=== PATIENT | female | born 1960 | race African-American/Black ===

== ENCOUNTER 2023-11-13 11:11 | Emergency (ER) | payer SELFPAY ==
[2023-11-13] MEDS ORDERED: MORPHINE 4 MG/ML SYR ONE ×2 (11:39→13:22)
[2023-11-13] MEDS ORDERED: ONDANSETRON 4 MG/2 ML VIAL ONE (11:39)
[2023-11-13 11:46] LABS: Absolute Lymphocytes (CBC) 1.1 K/uL (0.7-4.9); Absolute Monocytes 0.1 K/uL (0.1-1.3); Absolute Neutrophil 4.5 K/uL (1.8-8.0); Basophils % 0.6 % (0-1.3); Eosinophils % 0.1 % (0-4.4); Hematocrit 43.2 % (36.0-45.0); Hemoglobin 14.3 g/dL (12.0-15.0); Lymphocytes % 19.3 % (15.3-44.8); MCH 30.7 pg (27.0-35.0); MCHC 33.2 g/dL (32.0-36.0); MCV 92.5 fL (80-100); MPV 8.2 fL (7.6-11.3); Monocytes % 1.7 % (3.3-12.3); Neutrophils % 78.3 % (41.7-73.7); Platelets 283 thou/uL (152-406); RBC Red Blood Cell Count 4.68 M/uL (3.86-4.86); Red Cell Distribution Width 14.4 % (12.1-15.2)
[2023-11-13 12:07] LABS: Albumin 4.1 g/dL (3.4-5.0); Anion Gap 6.8 mEq/L (5.0-15.0); Bilirubin Total 0.4 mg/dL (0.2-1.0); Globulin 4.3 g/dL (2.3-3.5); Potassium 3.8 mEq/L (3.5-5.1); Protein, Total 8.4 g/dL (6.4-8.2); Troponin High Sensitivity 3.3 pg/mL (<58.9)
--- NOTE | 2023-11-13 13:05 | RAD REPORT ---
EXAM DESCRIPTION: US - Abdomen Exam Limited - 11/13/2023 12:11 pm CLINICAL HISTORY: ABD PAIN COMPARISON: No comparisons TECHNIQUE: Sonographic grayscale and color flow images of the right upper abdominal quadrant were o btained. FINDINGS: The gallbladder demonstrates no gallstones. Small fold near the neck. No pericholecystic f luid or gallbladder wall thickening. The common bile duct is normal measuring 3 mm. The liver demonstrates no findings of intrahepatic biliary dilatation. IMPRESSION: Unremarkable examination.
[2023-11-13 13:37] LABS: Specific Gravity 1.028 (1.005-1.030); Sqamous Epithelial None Seen /HPF (None Seen); Urine Bacteria None Seen /HPF (<20); Urine Bilirubin NEGATIVE (Negative); Urine Blood Trace (Negative); Urine Clarity Clear (Clear); Urine Color Light-Yellow (Yellow); Urine Culture Reflex Order NOT NEEDED; Urine Glucose 4+ (Over) (Negative); Urine Ketones NEGATIVE (Negative); Urine Microscopic Reflex YN ORDER UMIC; Urine Nitrite NEGATIVE (Negative); Urine Protein TRACE (Negative); Urine RBC <5 /HPF (None Seen); Urine Urobilinogen Normal (Normal); Urine WBC <5 /HPF (<5); Urine pH 5.5 (5.0-7.0)
--- NOTE | 2023-11-13 14:44 | RAD REPORT ---
EXAM DESCRIPTION: CTAbdomen Pelvis W Contrast - 11/13/2023 2:33 pm CLINICAL HISTORY: Abdominal pain. ABD PAIN COMPARISON: Abdomen Exam Limited dated 11/13/2023 TECHNIQUE: Biphasic CT imaging of the abdomen and pelvis was performed with 100 ml non-ionic IV cont rast. All CT scans are performed using dose optimization technique as appropriate and may include automated exposure control or mA/KV adjustment according to patient size. FINDINGS: The lung bases are clear. The liver demonstrates a mild fatty infiltration pattern. Spleen, pancreas and kidneys are within nor mal limits. Mild thickening of both adrenal glands. No bowel obstruction, free air, free fluid or abscess. Mild sigmoid diverticulosis coli without diver ticulitis. The appendix is normal. No evidence of significant lymphadenopathy. No suspicious bony findings. Hardware is present in the lumbar spine. IMPRESSION: No acute intra-abdominal or pelvic finding. Mild fatty liver.
--- NOTE | 2023-11-13 15:05 | ER ---
Nurse's Notes [facility] Name: Jes Swift Age: 62 yrs Sex: Female : 1960 Arrival Date: 11/13/2023 Time: 11:11 Bed 19 Private MD: Diagnosis: Right upper quadrant pain;Nausea Presentation: 11/12 11:23 Risk Assessment: Do you want to hurt yourself or someone else? Patient reports no mb9 desire to harm self or others. 11:27 Chief complaint: Patient states: RUQ pain , n/v/d this morning. Coronavirus screen: At iw this time, the client does not indicate any symptoms associated with coronavirus-19. Ebola Screen: Patient negative for fever greater than or equal to 101.5 degrees Fahrenheit, and additional compatible Ebola Virus Disease symptoms Patient denies exposure to infectious person. Patient denies travel to an Ebola-affected area in the 21 days before illness onset. No symptoms or risks identified at this time. Initial Sepsis Screen: Does the patient meet any 2 criteria? No. Patient's initial sepsis screen is negative. Does the patient have a suspected source of infection? No. Patient's initial sepsis screen is negative. Onset of symptoms was November 13, 2023. 11:27 Method Of Arrival: Ambulatory iw 11:27 Acuity: GEREMIAS 3 iw Historical: - Allergies: 11:31 Soma; iw - PMHx: 11:26 Hypertensive disorder; Diabetes mellitus; iw - Immunization history:: Adult Immunizations up to date. - Infectious Disease History:: Denies. - Social history:: Smoking status: Patient/guardian denies using tobacco, but has a distant history of tobacco abuse. Screenin:23 [facility] ED Fall Risk Assessment (Adult) History of falling in the last 3 months, mb9 including since admission No falls in past 3 months (0 pts) Confusion or Disorientation No (0 pts) Intoxicated or Sedated No (0 pts) Impaired Gait No (0 pts) Mobility Assist Device Used No (0 pt) Altered Elimination No (0 pt) Score/Fall Risk Level 0 - 2 = Low Risk Oriented to surroundings, Maintained a safe environment, Educated pt \T\ family on fall prevention, incl call for assistance when getting out of bed. Abuse screen: Denies threats or abuse. Nutritional screening: No deficits noted. Tuberculosis screening: No symptoms or risk factors identified. Assessment: 11:56 General: Appears uncomfortable, Behavior is calm, cooperative. Pain: Complains of pain mb9 in abdomen Pain radiates to RUQ Pain currently is 9 out of 10 on a pain scale. Quality of pain is described as throbbing, Pain began suddenly, Is continuous. Neuro: Anders Agitation-Sedation Scale (RASS): 0 - Alert and Calm Level of Consciousness is awake, alert, obeys commands, Oriented to person, place, time, situation, Appropriate for age. Cardiovascular: Heart tones S1 S2 present Patient's skin is warm and dry. Rhythm is regular. Respiratory: Airway is patent Respiratory effort is even, unlabored, Respiratory pattern is regular, symmetrical. GI: Abdomen is round non-distended, Bowel sounds present X 4 quads. Abd is soft Abdomen is tender to palpation in right upper quadrant Reports diarrhea, nausea, vomiting. : No signs and/or symptoms were reported regarding the genitourinary system. EENT: No signs and/or symptoms were reported regarding the EENT system. Derm: Skin is pink, warm \T\ dry. Musculoskeletal: Range of motion: intact in all extremities. 12:55 Reassessment: Patient and/or family updated on plan of care and expected duration. Pain mb9 level reassessed. Patient is alert, oriented x 3, equal unlabored respirations, skin warm/dry/pink. Patient states symptoms have not improved. 13:57 Reassessment: Patient and/or family updated on plan of care and expected duration. Pain mb9 level reassessed. Patient is alert, oriented x 3, equal unlabored respirations, skin warm/dry/pink. Patient states feeling better. Patient states symptoms have improved. 15:10 Reassessment: No changes from previously documented assessment. Patient and/or family mb9 updated on plan of care and expected duration. Pain level reassessed. Patient is alert, oriented x 3, equal unlabored respirations, skin warm/dry/pink. Vital Signs: 11:27 BP 133 / 50; Pulse 61; Resp 16; Temp 97; Pulse Ox 98% on R/A; Weight 82.55 kg; Height 5 iw ft. 4 in. ; Pain 9/10; 12:38 BP 128 / 73; Pulse 58; Resp 16; Pulse Ox 98% on R/A; mb9 13:56 BP 149 / 94; Pulse 60; Resp 16; Pulse Ox 100% on R/A; mb9 15:10 BP 123 / 55; Pulse 62; Resp 18; Pulse Ox 98% ; mb9 11:27 Body Mass Index 31.24 (82.55 kg, 162.56 cm) iw 11:27 Pain Scale: Adult iw ED Course: 11:17 Patient arrived in ED. im 11:18 Meagan Rios MD is Attending Physician. sd2 11:22 Irene Levy, RN is Primary Nurse. mb9 11:22 Arm band placed on. mb9 11:23 Placed in gown. Bed in low position. Call light in reach. Side rails up X 1. Provided mb9 Education on: press call light if needing anything. Client placed on continuous cardiac and pulse oximetry monitoring. NIBP monitoring applied. 11:28 Triage completed. iw 11:57 Initial lab(s) drawn, by me, sent to lab. Inserted saline lock: 22 gauge in left mb9 antecubital area, using aseptic technique. 11:57 Missed attempt(s): 22 gauge in right antecubital area. Bleeding controlled, band aid mb9 applied, catheter tip intact. 11:58 EKG done, by ED staff, reviewed by Meagan Rios MD. mb9 12:13 US Abdomen Limited In Process Unspecified. EDMS 12:39 No provider procedures requiring assistance completed. mb9 13:14 Patient requests pain medication. mb9 13:14 Door closed. Noise minimized. Warm blanket given. Pillow given. mb9 13:15 Urinalysis w/ reflexes Sent. mb9 14:[address] via wheelchair. mb9 14:35 CT Abd/Pelvis - IV Contrast Only In Process Unspecified. EDMS 15:11 IV discontinued, intact, bleeding controlled, No redness/swelling at site. Pressure mb9 dressing applied. Administered Medications: 11:50 Drug: Ondansetron IVP 4 mg IVP once; over 2 minutes Route: IVP; Site: left antecubital; mb9 13:26 Follow up: Response: No adverse reaction mb9 11:56 Drug: morphine IVP or IV 4 mg IVP once over 4 mins Route: IVP; Infused Over: 4 mins; mb9 Site: left antecubital; 13:26 Follow up: Response: No adverse reaction mb9 13:26 Drug: morphine IVP or IV 4 mg IVP once over 4 mins Route: IVP; Infused Over: 4 mins; mb9 Site: left antecubital; 13:58 Follow up: Response: No adverse reaction mb9 Medication: 11:23 VIS not applicable for this client. mb9 Outcome: 15:05 Discharge ordered by . sd2 15:18 Discharged to home ambulatory, mb9 15:18 Condition: stable 15:18 Discharge instructions given to patient, Instructed on discharge instructions, follow up and referral plans. Demonstrated understanding of instructions, follow-up care, medications, Prescriptions given X 2, 15:18 Patient left the ED. mb9 Signatures: Dispatcher [employer] EDMS Vivienne Randhawa RN HEIDE iw Meagan Rios MD MD sd2 Irene Levy RN RN mb9 Shawna Love Corrections: (The following items were deleted from the chart) 11: 11:26 Allergies: No Known Allergies; 11 11:26 PMHx: Hyperthyroidism; 11:31 11:27 BP 133 / 50; Pulse 61bpm; Resp 16bpm; Pulse Ox 98% RA; Temp 97F; iw iw
--- NOTE | 2023-11-13 15:05 | EDPHYS ---
Physician Documentation [facility] Name: Jes Swift Age: 62 yrs Sex: Female : 1960 Arrival Date: 11/13/2023 Time: 11:11 Bed 19 Private MD: ED Physician Meagan Rios HPI: 11/12 11:49 This 62 yrs old Black Female presents to ER via Ambulatory with complaints of sd2 Nausea/Vomiting, Abdominal Pain. 11:49 62-year-old female presents with chief complaint of right upper quadrant abdominal pain sd2 with associated nausea, vomiting and diarrhea that started at 5 AM this morning and woke her up from sleep. She was seen at urgent care prior to coming here and was told to come to the ER due to concern for gallbladder issue. She has not had any previous issues with her gallbladder and has not taken any [id number] medications for pain today. She denies any associated chest pain or shortness of breath or fevers.. Historical: - Allergies: 11:31 Soma; iw - PMHx: 11:26 Hypertensive disorder; Diabetes mellitus; iw - Immunization history:: Adult Immunizations up to date. - Infectious Disease History:: Denies. - Social history:: Smoking status: Patient/guardian denies using tobacco, but has a distant history of tobacco abuse. ROS: 11:49 Constitutional: Negative for fever, chills, and weight loss, Eyes: Negative for injury, sd2 pain, redness, and discharge, Cardiovascular: Negative for chest pain, palpitations, and edema, Respiratory: Negative for shortness of breath, cough, wheezing. 11:49 MS/Extremity: Negative for injury and deformity, Skin: Negative for injury, rash, and discoloration, Neuro: Negative for headache, numbness and tingling. 11:49 Abdomen/GI: Positive for abdominal pain, nausea, vomiting, and diarrhea, Negative for constipation, rectal bleeding, Exam: 11:49 Constitutional: This is a well developed, well nourished patient who is awake, alert, sd2 and in no acute distress. Head/Face: Normocephalic, atraumatic. Eyes: EOMI, normal conjunctiva bilaterally Chest/axilla: Normal chest wall appearance and motion. Nontender with no deformity. Cardiovascular: Regular rate and rhythm with a normal S1 and S2. No gallops, murmurs, or rubs. 2+ distal pulses. Respiratory: Lungs have equal breath sounds bilaterally, clear to auscultation and percussion. No rales, rhonchi or wheezes noted. No increased work of breathing, no retractions or nasal flaring. Abdomen/GI: Soft, ND, RUQ TTP noted with positive Doss's sign, no rebound, voluntary guarding noted to RUQ Skin: Warm, dry with normal turgor. Normal color with no rashes, no lesions, and no evidence of cellulitis. MS/ Extremity: Pulses equal, no cyanosis. Neurovascular intact. Full, normal range of motion. Psych: Awake, alert, with orientation to person, place and time. Behavior, mood, and affect are within normal limits. 12:02 ECG was reviewed by the Attending Physician. Sinus bradycardia, rate 57, no STEMI sd2 criteria or significant ST-T wave changes Vital Signs: 11:27 BP 133 / 50; Pulse 61; Resp 16; Temp 97; Pulse Ox 98% on R/A; Weight 82.55 kg; Height 5 iw ft. 4 in. ; Pain 9/10; 12:38 BP 128 / 73; Pulse 58; Resp 16; Pulse Ox 98% on R/A; mb9 13:56 BP 149 / 94; Pulse 60; Resp 16; Pulse Ox 100% on R/A; mb9 15:10 BP 123 / 55; Pulse 62; Resp 18; Pulse Ox 98% ; mb9 11:27 Body Mass Index 31.24 (82.55 kg, 162.56 cm) iw 11:27 Pain Scale: Adult iw MDM: 11:31 Patient medically screened. sd2 11:49 Differential diagnosis: Gastritis, cholecystitis, pancreatitis, SBO, diverticulitis, sd2 kidney stone, appendicitis, UTI, dehydration, electrolyte abnormality among others. Data reviewed: vital signs, nurses notes, lab test result(s), EKG, radiologic studies, ultrasound. I considered the following discharge prescriptions or medication management in the emergency department Medications were administered in the Emergency Department. See MAR. Care significantly affected by the following chronic conditions: Diabetes, Hypertension. 15:02 Independent interpretation of the following test(s) in the Emergency Department EKG: sd2 See my EKG interpretation above. Counseling: I had a detailed discussion with the patient and/or guardian regarding the historical points, exam findings, and any diagnostic results supporting the discharge/admit diagnosis, lab results, radiology results, the need for outpatient follow up. Response to treatment: the patient's symptoms have markedly improved after treatment. ED course: Pain controlled. Pt resting comfortably. Advised of all results and continued supportive care for home as well as need for outpatient follow up. Verbalizes understanding of discharge plan and strict return precautions. . 11/12 11:32 Order name: CBC with Diff; Complete Time: 14:00 sd2 11/12 11:32 Order name: CMP; Complete Time: 14:00 sd2 11/12 11:32 Order name: Lipase; Complete Time: 14:00 sd2 11/12 11:32 Order name: Troponin High Sensitivity; Complete Time: 14:00 sd11/12 11:32 Order name: Urinalysis w/ reflexes; Complete Time: 14:00 sd2 11/12 11:32 Order name: US Abdomen Limited; Complete Time: 14:00 sd2 11/12 14:01 Order name: CT Abd/Pelvis - IV Contrast Only; Complete Time: 14:57 sd11/12 11:32 Order name: EKG - Nurse/Tech; Complete Time: 11:56 sd2 Administered Medications: 11:50 Drug: Ondansetron IVP 4 mg IVP once; over 2 minutes Route: IVP; Site: left antecubital; mb9 13:26 Follow up: Response: No adverse reaction mb9 11:56 Drug: morphine IVP or IV 4 mg IVP once over 4 mins Route: IVP; Infused Over: 4 mins; mb9 Site: left antecubital; 13:26 Follow up: Response: No adverse reaction mb9 13:26 Drug: morphine IVP or IV 4 mg IVP once over 4 mins Route: IVP; Infused Over: 4 mins; mb9 Site: left antecubital; 13:58 Follow up: Response: No adverse reaction mb9 Disposition Summary: 11/13/23 15:05 Discharge Ordered Notes: Location: Home sd2 Problem: new sd2 Symptoms: have improved sd2 Condition: Stable sd2 Diagnosis - Right upper quadrant pain sd2 - Nausea sd2 Followup: sd2 - With: Private Physician - When: 2 - 3 days - Reason: Recheck today's complaints, Continuance of care, Re-evaluation by your physician Discharge Instructions: - Discharge Summary Sheet sd2 - Abdominal Pain, Adult sd2 - Nausea, Adult sd2 Forms: - Medication Reconciliation Form sd2 - Antibiotic Education sd2 - Prescription Opioid Use sd2 - Patient Portal Instructions sd2 - Leadership Thank You Letter sd2 Prescriptions: - acetaminophen-codeine 300-15 mg Oral tablet - take 1 tablet ORAL route every 6 hours As needed; 12 tablet; Refills: 0, sd2 Product Selection Permitted - Zofran 4 mg Oral tablet - take 1 tablet ORAL route every 6 hours As needed; 15 tablet; Refills: 0, sd2 Product Selection Permitted Signatures: Dispatcher [employer] EDVivienne Cano RN RN Meagan Rios MD MD sd2 Irene Levy RN RN mb9 Corrections: (The following items were deleted from the chart) 11: 11:26 Allergies: No Known Allergies; [facility] 11:26 PMHx: Hyperthyroidism; [facility] 11: 11:32 CBC+H.LAB.BRZ ordered. EDMS EDMS 11:32 11:32 COMPREHENSIVE METABOLIC PANEL+C.LAB.BRZ ordered. EDMS EDMS 11:32 11:32 LIPASE+C.LAB.BRZ ordered. EDMS EDMS 11:32 11:32 Troponin High Sensitivity+C.LAB.BRZ ordered. EDMS EDMS 11:32 11:32 Urinalysis+U.LAB.BRZ ordered. EDMS EDMS
[2023-11-13 15:49] VITALS: BP 123/55; TEMP 97; O2SAT 98
--- NOTE | 2023-11-15 14:42 | EKG ---
Test Date: 2023-11-13 Test Time: 11:51:10 Rn Transitional: MB MEASUREMENT RESULTS: Intervals: Rate: 57 VA: 158 QRSD: 84 QT: 428 QTc: 416 [place]: P: 54 VA: 158 QRS: 23 T: 47 INTERPRETIVE STATEMENTS: Sinus bradycardia Septal infarct, age undetermined Abnormal ECG No previous ECG available for comparison Electronically Signed On 11-15-23 14:38:52 CDT by Jason Christian
== END 2023-11-13 15:18 | disposition home or self-care (01) ==
LOC: ER 11:11
DX: R10.11 Right upper quadrant pain (principal); R11.0 Nausea
CPT/HCPCS: 36415; 74177; 76705; 80053; 81001; 83690; 84484; 85025; 93005; 96374; 96375; 99285; J2405; Q9967

== ENCOUNTER 2024-07-14 10:39 | Emergency (ER) | payer OTHER ==
--- OUTSIDE RECORDS SUMMARY | 2024-07-14 10:45 | XMS REPORT | Continuity of Care Document ---
Author Name Unknown Address [address] [facility] [address] [place] [address] [facility] Address [address] [facility] [address] [place] [address] Care Team Providers Care Billboard Poster Name Role Phone Teressa Su MD Primary Care Physician [phone] TERESSA SU Attending Clinician Unavailable MATHEW KIRKPATRICK Attending Clinician Unav bennieable ROMELIA DUFFY Attending Clinician Unavailable MEAGAN MORALES Attending Clinician UnavailKAE Steel Attending Clinician Unavail louie Blake RN, Char Attending Clinician UnavailEstee Bernal RN Rhoda HOYT Attending Clini bakari Unavailable Chapo ASTUDILLO, Kristy Wesley Attending Clinician [phone] KRISTY COWAN Attending Clinician Rhoda uDran RN Attending Clinician Un available Hubert Rodgers DO Attending Clinician + Roseanna Osullivan MD, Nina Swartz Attending Clinician [phone] Yuliet Richardson APRN Attending Clinician [phone] Nolvia Mendez MD Attending Clinician [phone] Stiven DEL ANGEL, Karen Dowd Attending Clinician [phone] MATHEW KIRKPATRICK Attending Clinician Unav chely Raphael RN, Mirella Attending Clinician Unavailab gunnar AckermanEileen Sarkar LCSW Attending Clinicia n Unavailable Bay DEL ANGEL, Adele Attending Clinician + Merry Gruber LVN Attending Clinician Unavail able DANNY PICKETT Attending Clinician Un available TERESSA SU M.D. Attending Clinician Unavail able MATHEW POTTS N.P. Attending Clinician Unavailable CAMERON, NURSE Attending Clinician Unavailable CO19, DAVEIENNA Attending Clinician Unavail able RADHA DAY APRN Attending Clinician Unavaila ALICIA Limon M.D. Attending Clinician Unavaila MATHEW Zamarripa Admitting Clinician Unav ailable Payers Payer Name Policy Type Policy Number Effective Date Expirati on Date Source OPEN ACCESS [employer] EPO [id number] 2019 00:00:00 MEDICARE PART A AND B [id number] 2023 00:00:00 MEDICARE PART A AND B Medicare [id number] 2024 00:00:00 Problems Condition Name Condition Details Condition Category Status Onset Date Resolution Date Last Treatment Date Treating Clinician Comments Source Cervicalgi a Cervicalgi a Disease Active 2-14 00:00: 00 [facility] Adjustment disorder with depressed mood Adjustment disorder with depressed mood Disease Active 1-12 00:00: 00 [facility] Essential hypertensi on Essential hypertensi on Disease Active 7- 00:00: 00 [facility] Hypothyroi dism Hypothyroi dism Disease Active 9- 00:00: 00 [facility] Diabetes type 2, uncontroll ed Diabetes type 2, uncontroll ed Disease Active 03-24 00:00: 00 [facility] Cervical herniated disc Cervical herniated disc Disease Active 10-21 00:00: 00 [facility] Cervical herniated disc Cervical herniated disc Disease Active 10-21 00:00: 00 [facility] Lumbar radiculopa thy Lumbar radiculopa thy Disease Active 2015-07 00:00: 00 [facility] Peripheral neuropathy Peripheral neuropathy Disease Active 07-27 00:00: 00 [facility] Obesity Obesity Disease Active 07-27 00:00: 00 [facility] Other hyperlipid emia Other hyperlipid emia Disease Active 03-17 00:00: 00 [facility] Graves disease Graves disease Disease Active 11-21 00:00: 00 [facility] Post menopausal problems Post menopausal problems Disease Active 11-21 00:00: 00 [facility] History of allergy History of allergy [facility] History of Back pain History of Back pain Problem Resolve d [facility] History of Diabetes mellitus, type 2 History of Diabetes mellitus, type 2 Problem Resolve d [facility] Encounter for routine gynecologi vern examinatio n with Papanicola ou smear of cervix Encounter for routine gynecologi vern examinatio n with Papanicola ou smear of cervix Problem Active [facility] History of essential hypertensi on History of essential hypertensi on Problem Resolve d [facility] Essential (primary) hypertensi on Essential (primary) hypertensi on Problem Active [facility] History of History of lumbar laminectom y for spinal cord decompress ion History of History of lumbar laminectom y for spinal cord decompress ion Problem Resolve d [facility] History of Hyperthyro idism History of Hyperthyro idism Problem Resolve d [facility] History of obesity History of obesity Problem Resolve d [facility] History of Thyroid disease History of Thyroid disease Problem Resolve d [facility] Bone Pain In The Heel Bone Pain In The Heel Problem Active [facility] Postmenopa usal status Postmenopa usal status Problem Active [facility] Graves disease Graves disease Problem Active [facility] Postmenopa usal bleeding Postmenopa usal bleeding Problem Active [facility] Plantar fasciitis Plantar fasciitis Problem Active [facility] Extremity pain Extremity pain Problem Active [facility] Menopausal disorder Menopausal disorder Problem Active [facility] Visit for screening mammogram Visit for screening mammogram Problem Active [facility] Abnormal thyroid function test Abnormal thyroid function test Problem Active [facility] Pain, wrist joint Pain, wrist joint Problem Active [facility] Other hyperlipid emia Other hyperlipid emia Problem Active [facility] Skin rash Skin rash Problem Active [facility] Elsa infection Elsa infection Problem Active [facility] Vaginal discharge Vaginal discharge Problem Active [facility] Cutaneous candidiasi s Cutaneous candidiasi s Problem Active [facility] Obesity Obesity Problem Active [facility] Vitamin D insufficie ncy Vitamin D insufficie ncy Problem Active [facility] Neuropathy Neuropathy Problem Active [facility] Cervical pain (neck) Cervical pain (neck) Problem Active [facility] S/P cervical spinal fusion S/P cervical spinal fusion Problem Active [facility] Cervical radicular pain Cervical radicular pain Problem Active [facility] Bilateral low back pain with sciatica, sciatica laterality unspecifie d Bilateral low back pain with sciatica, sciatica laterality unspecifie d Problem Active [facility] Normal physical exam, routine Normal physical exam, routine Problem Active [facility] Lumbar radiculopa thy Lumbar radiculopa thy Problem Active [facility] Menopausal symptoms Menopausal symptoms Problem Active [facility] Herniation of interverte bral disc of cervical spine without radiculopa thy Herniation of interverte bral disc of cervical spine without radiculopa thy Problem Active [facility] Need for hepatitis C screening test Need for hepatitis C screening test Problem Active [facility] Carpal tunnel syndrome of right wrist Carpal tunnel syndrome of right wrist Problem Active [facility] Hypothyroi dism Hypothyroi dism Problem Active [facility] Diabetes type 2, uncontroll ed Diabetes type 2, uncontroll ed Problem Active [facility] Lateral epicondyli tis of left elbow Lateral epicondyli tis of left elbow Problem Active [facility] Adjustment disorder with depressed mood Adjustment disorder with depressed mood Problem Active [facility] Depression Depression Problem [facility] Major depressive disorder, recurrent, moderate Major depressive disorder, recurrent, moderate Problem Active [facility] Allergies, Adverse Reactions, Alerts Allergy Name Allergy Type Status Severity Reaction(s) Onset Date Inactive Date Treating Clinician Comments Source Clem allen Allergy to substanc e Active 11-17 00:00: 00 [facility] Carisopr odol Allergy to substanc e Active 11-17 00:00: 00 [facility] Invokana TABS Allergy to drug (finding ) Active [facility] Soma Compound TABS Allergy to drug (finding ) Active [facility] Family History Family Member Diagnosis Comments Start Date Stop Date Sourc e Mother Family history of di abetes mellitus [facility] Mother Family history of ty pe 2 diabetes mellitus [facility] Father Family history of ty pe 2 diabetes mellitus [facility] Social History Social Habit Start Date Stop Date Quantity Comments Source Gender identity 2023-10-05 05:37:52 Identifies as female gender (finding) [facility] History of tobacco use Current smoker [facility] Sexual orientation [facility] ASSERTION Not [facility] Alcoholic beverage intake 2024-07-13 00:00:00 2024-07-13 00:00:00 Current drinker of alcohol (finding) [facility] History of Social function 2024-05-19 00:00:00 2024-05-19 00:00:00 [facility] Alcohol intake 2023-05-17 00:00:00 2023-05-17 00:00:00 Current drinker of alcohol (finding) [facility] Exposure to SARS-CoV-2 (event) 2022-08-21 00:00:00 2022-08-31 08:44:00 Not sure [facility] History SDOH Food Worry 2022-08-10 00:00:00 2022-08-10 00:00:00 1 [facility] History SDOH Food Scarcity 2022-08-10 00:00:00 2022-08-10 00:00:00 1 [facility] Tobacco Comment 2022-08-10 00:00:00 2022-08-10 00:00:00 Smoking History Packs/day: N. Recorded:04/25/20 21 [facility] Tobacco use and exposure 2022-08-10 00:00:00 2022-08-10 00:00:00 Smokeless tobacco non-user [facility] History SDOH Alcohol Frequency 2022-08-10 00:00:00 2022-08-10 00:00:00 4 [facility] History SDOH Alcohol Std Drinks 2022-08-10 00:00:00 2022-08-10 00:00:00 1 [facility] History SDOH Alcohol Binge 2022-08-10 00:00:00 2022-08-10 00:00:00 1 [facility] Cigarette pack-years 2021-03-24 00:00:00 2021-03-24 00:00:00 [facility] Alcohol Comment 2021-03-24 00:00:00 2021-03-24 00:00:00 social [facility] Sex 2020-09-07 16:24:01 2020-09-07 16:24:01 Female (finding) [facility] Sex assigned at 1960 00:00:00 1960 00:00:00 F [facility] Smoking Status Start Date Stop Date Source Ex-smoker [facility] Tobacco smoking consumption unknown [facility] Never smoked tobacco [facility] Medications Ordered Medication Name Filled Medication Name Start Date Stop Date Current Medication? Ordering Clinician Indication Dosage Frequency Signature (SIG) Comments Components Source Blood Pressure Monitoring (Blood Pressure Cuff) [facility] 2023-07 00:00: 00 Yes [id number] 1U QD 1 Units 1 (one) time each day. [facility] rosuvastati n (Crestor) 10 MG tablet 2023-07 00:00: 00 Yes [id number] 10mg QD TAKE 1 TABLET BY MOUTH 1 TIME EACH DAY. [facility] lisinopril- hydroCHLORO thiazide 20-25 MG tablet 2023-07 00:00: 00 Yes [id number] 1{tbl} QD TAKE 1 TABLET BY MOUTH 1 TIME EACH DAY. [facility] Trulicity 1.5 MG/0.5ML solution auto-inject or 2023-07 00:00: 00 Yes [facility] cephalexin (Keflex) 500 MG capsule cephalexin (Keflex) 500 MG capsule 2023-07 00:00: 00 06-25 23:59 :00 No 500mg Q.5D Take 1 capsule by mouth in the morning and 1 capsule in the evening. Do all this for 7 days. Tanika Wheeler cephalexin (Keflex) 500 MG capsule cephalexin (Keflex) 500 MG capsule 2023-07 00:00: 00 06-18 00:00 :00 No 500mg Q.5D Take 1 capsule by mouth in the morning and 1 capsule in the evening. Do all this for 10 days. [facility] montelukast (Singulair) 10 MG tablet 2023-07 00:00: 00 Yes [id number] 10mg QD Take 1 tablet (10 mg total) by mouth 1 (one) time each day. [facility] hydrOXYzine HCl (Atarax) 25 MG tablet 2023-07 00:00: 00 Yes [id number] 25mg Take 1 tablet (25 mg total) by mouth every night. [facility] cyclobenzap rine (Flexeril) 10 MG tablet 2023-07 00:00: 00 Yes [id number] TAKE 1 TABLET BY MOUTH THREE TIMES A DAY NEEDED FOR MUSCLE SPASM [facility] insulin aspart (NovoLOG FLEXPEN) 100 UNIT/ML injection 2023-07 00:00: 00 Yes [id number] 9109 22U Q.[id number] 3D Inject 22 Units under the skin in the morning and 22 Units at noon and 22 Units in the evening. MAXIMUM OF 60 UNITS PER DAY. [facility] levothyroxi ne (Synthroid, Levoxyl) 75 MCG tablet 2023-07 00:00: 00 05-30 05:59 :00 Yes [id number] 75ug QD Take 1 tablet (75 mcg total) by mouth 1 (one) time each day. [facility] Dulaglutide 0.75 MG/0.5ML solution auto-inject or 2023-07 00:00: 00 Yes [id number] 9109 .75mg Inject 0.75 mg under the skin 1 (one) time per week. Inject 0.75 mg under the skin 1 (one) time per week. [facility] gabapentin (Neurontin) 800 MG tablet 2023-07 00:00: 00 05-27 05:59 :00 Yes [id number] 800mg Q.[id number] 3D Take 1 tablet (800 mg total) by mouth in the morning and 1 tablet (800 mg total) at noon and 1 tablet (800 mg total) in the evening. [facility] lisinopril- hydroCHLORO thiazide 20-25 MG tablet 2023-07 00:00: 00 2025- 07-11 04:59 :00 Yes [id number] 1{tbl} QD Take 1 tablet by mouth 1 (one) time each day. [facility] rosuvastati n (Crestor) 10 MG tablet 2023-07 00:00: 00 11-23 04:59 :00 Yes [id number] 9109 10mg QD Take 1 tablet (10 mg total) by mouth 1 (one) time each day. [facility] dulaglutide (Trulicity) 0.75 MG/0.5ML solution pen-injecto r 04-13 00:00: 00 Yes [id number] 9109 .75mg Inject 0.75 mg under the skin 1 (one) time per week. [facility] hydrOXYzine HCl (Atarax) 25 MG tablet 04-08 00:00: 00 Yes [id number] 25mg Take 1 tablet (25 mg total) by mouth every night. [facility] cyclobenzap rine (Flexeril) 10 MG tablet 03-23 00:00: 00 Yes [id number] TAKE 1 TABLET BY MOUTH THREE TIMES A DAY NEEDED FOR MUSCLE SPASM [facility] montelukast (Singulair) 10 MG tablet 03-02 00:00: 00 Yes [id number] 10mg QD Take 1 tablet (10 mg total) by mouth 1 (one) time each day. [facility] insulin degludec (Tresiba FlexTouch) 100 UNIT/ML injection 03-02 00:00: 00 Yes [id number] 9109 35U Inject 35 Units under the skin every morning. [facility] insulin aspart (NovoLOG FLEXPEN) 100 UNIT/ML injection 03-02 00:00: 00 Yes [id number] 9109 22U Q.[id number] 3D Inject 22 Units under the skin in the morning and 22 Units at noon and 22 Units in the evening. MAXIMUM OF 60 UNITS PER DAY. [facility] Blood Glucose Monitoring Suppl (Accu-Chek Jennifer Plus) w/Device kit 03-02 00:00: 00 Yes [id number] 9109 1U Inject 1 Units under the skin See administra tion instructio ns. [facility] levothyroxi ne (Synthroid, Levoxyl) 75 MCG tablet 03-02 00:00: 00 03-03 04:59 :00 No [id number] 75ug QD Take 1 tablet (75 mcg total) by mouth 1 (one) time each day. [facility] gabapentin (Neurontin) 800 MG tablet 03-02 00:00: 00 03-03 04:59 :00 No [id number] 800mg Q.[id number] 3D Take 1 tablet (800 mg total) by mouth in the morning and 1 tablet (800 mg total) at noon and 1 tablet (800 mg total) in the evening. [facility] lisinopril- hydroCHLORO thiazide 20-25 MG tablet 03-02 00:00: 00 10-29 04:59 :00 No [id number] 1{tbl} QD Take 1 tablet by mouth 1 (one) time each day. [facility] rosuvastati n (Crestor) 10 MG tablet 03-02 00:00: 00 08-30 05:59 :00 No [id number] 9109 10mg QD Take 1 tablet (10 mg total) by mouth 1 (one) time each day. [facility] empaglifloz in (Jardiance) 10 MG 03-02 00:00: 00 04-13 00:00 :00 No [id number] 9109 10mg QD Take 1 tablet (10 mg total) by mouth 1 (one) time each day. [facility] Insulin Pen Needle (BD Pen Needle Theresa 2nd Gen) 32G X 4 MM misc 03-02 00:00: 00 03-02 00:00 :00 No [id number] 9109 1U INJECT 1 UNITS UNDER THE SKIN 3 (THREE) TIMES A WEEK. [facility] cyclobenzap rine (Flexeril) 10 MG tablet 02-24 00:00: 00 Yes [id number] TAKE 1 TABLET BY MOUTH THREE TIMES A DAY NEEDED FOR MUSCLE SPASM [facility] celecoxib (CeleBREX) 200 MG capsule - 00:00: 00 Yes [id number] TAKE 1 CAPSULE BY MOUTH EVERY DAY [facility] rosuvastati n (Crestor) 10 MG tablet 08-26 00:00: 00 03-02 00:00 :00 No [id number] 10mg QD Take 1 tablet (10 mg total) by mouth 1 (one) time each day. [facility] levothyroxi ne (Synthroid, Levoxyl) 75 MCG tablet 08-26 00:00: 00 03-02 00:00 :00 No [id number] 75ug QD Take 1 tablet (75 mcg total) by mouth 1 (one) time each day. [facility] cetirizine (ZyrTEC) 10 MG tablet 08-23 09:09: 40 Yes TAKE 1 TABLET TWICE DAILY [facility] glucose blood test strip 08-23 09:09: 40 Yes Accu-Chek Jennifer Plus test strips USE 1 STRIP 4 TIMES A DAY [facility] insulin detemir (Levemir) 100 UNIT/ML injection 08-23 09:09: 40 Yes 35U Inject 35 Units under the skin 1 (one) time each day in the morning. [facility] simvastatin (Zocor) 20 MG tablet 08-23 00:00: 00 Yes [id number] 9109 20mg QD Take 1 tablet (20 mg total) by mouth 1 (one) time each day. [facility] levothyroxi ne (Synthroid, Levoxyl) 50 MCG tablet 08-23 00:00: 00 Yes [id number] 50ug Take 1 tablet (50 mcg total) by mouth 1 (one) time each day before breakfast. TAKE 1 TABLET BY MOUTH EVERY MORNING BEFORE EATING [facility] Omeprazole 20 MG tablet delayed-rel ease 08-23 00:00: 00 Yes [facility] montelukast (Singulair) 10 MG tablet 08-23 00:00: 00 03-02 00:00 :00 No [id number] 10mg QD Take 1 tablet (10 mg total) by mouth 1 (one) time each day. [facility] lisinopril- hydroCHLORO thiazide 20-25 MG tablet 08-23 00:00: 00 03-02 00:00 :00 No [id number] 1{tbl} QD Take 1 tablet by mouth 1 (one) time each day. [facility] insulin degludec (Tresiba FlexTouch) 100 UNIT/ML injection 2024-0 2-09 00:00: 00 03-02 00:00 :00 No [id number] 35U Inject 35 Units under the skin every morning. [facility] dulaglutide (Trulicity) 1.5 MG/0.5ML solution pen-injecto r 2- 00:00: 00 03-02 00:00 :00 No [id number] 9109 1.5mg Inject 1.5 mg under the skin 1 (one) time per week. INJECT 1.5 MG UNDER THE SKIN 1 (ONE) TIME PER WEEK [facility] dapaglifloz in (Farxiga) 5 MG - 00:00: 00 03-02 00:00 :00 No [id number] 5mg QD Take 1 tablet (5 mg total) by mouth 1 (one) time each day. [facility] cyclobenzap rine (Flexeril) 10 MG tablet 2- 00:00: 00 Yes [id number] TAKE 1 TABLET BY MOUTH THREE TIMES A DAY NEEDED FOR MUSCLE SPASM [facility] gabapentin (Neurontin) 800 MG tablet 2- 00:00: 00 03-02 00:00 :00 No [id number] 800mg Q.[id number] 3D TAKE 1 TABLET (800 MG TOTAL) BY MOUTH IN THE MORNING AND 1 TABLET (800 MG TOTAL) AT NOON AND 1 TABLET (800 MG TOTAL) IN THE EVENING. [facility] celecoxib (CeleBREX) 200 MG capsule 1-29 00:00: 00 Yes [id number] TAKE 1 CAPSULE BY MOUTH EVERY DAY [facility] insulin degludec (Tresiba FlexTouch) 100 UNIT/ML injection 1-24 00:00: 00 08-23 00:00 :00 No [id number] 35U Inject 35 Units under the skin every morning. [facility] insulin aspart (NovoLOG FLEXPEN) 100 UNIT/ML injection 1-16 00:00: 00 03-02 00:00 :00 No [id number] 9109 22U Q.[id number] 3D INJECT 22 UNITS UNDER THE SKIN 3 (THREE) TIMES A DAY. MAXIMUM OF 60 UNITS PER DAY [facility] Insulin Pen Needle (BD Pen Needle Theresa 2nd Gen) 32G X 4 MM misc 07-30 00:00: 00 03-02 00:00 :00 No [id number] 9109 USE UP TO 5 TIMES DAILY [facility] montelukast (Singulair) 10 MG tablet 07-30 00:00: 00 08-23 00:00 :00 No [id number] TAKE 1 TABLET BY MOUTH EVERY DAY [facility] dulaglutide (Trulicity) 1.5 MG/0.5ML solution pen-injecto r 07-30 00:00: 00 08-23 00:00 :00 No [id number] 9109 1.5mg INJECT 1.5 MG UNDER THE SKIN 1 (ONE) TIME PER WEEK. [facility] simvastatin (Zocor) 20 MG tablet 2022-07 00:00: 00 08-23 00:00 :00 No [id number] 9109 TAKE 1 TABLET BY MOUTH EVERY DAY [facility] hydrOXYzine HCl (Atarax) 25 MG tablet 2022-07 00:00: 00 03-02 00:00 :00 No [id number] TAKE 1 TABLET (25 MG TOTAL) BY MOUTH IN THE MORNING AND BEFORE BEDTIME [facility] albuterol 108 (90 Base) MCG/ACT inhaler 2022-07 06:27: 02 05-18 00:00 :00 No albuterol sulfate HFA 90 mcg/actuat ion aerosol inhaler [facility] cetirizine (ZyrTEC) 10 MG tablet 2022-07 15:53: 43 Yes TAKE 1 TABLET TWICE DAILY [facility] cyclobenzap rine (Flexeril) 10 MG tablet 2022-07 00:00: 00 Yes [id number] TAKE 1 TABLET BY MOUTH THREE TIMES A DAY NEEDED FOR MUSCLE SPASM [facility] famotidine (Pepcid) 20 MG tablet 2022-07 00:00: 00 08-23 00:00 :00 No [id number] 20mg Q.5D Take 1 tablet (20 mg total) by mouth in the morning and 1 tablet (20 mg total) in the evening. [facility] lisinopril- hydroCHLORO thiazide 20-12.5 MG tablet 2022-07- 00:00: 00 08-23 00:00 :00 No [id number] 1{tbl} QD Take 1 tablet by mouth 1 (one) time each day. [facility] celecoxib (CeleBREX) 200 MG capsule 2022-07 0- 00:00: 00 Yes [id number] TAKE 1 CAPSULE BY MOUTH EVERY DAY [facility] insulin aspart (NovoLOG FLEXPEN) 100 UNIT/ML injection 2022-07 0- 00:00: 00 Yes [id number] 9109 22U Q.[id number] 3D INJECT 22 UNITS UNDER THE SKIN IN THE MORNING AND 22 UNITS AT NOON AND 22 UNITS IN THE EVENING. MAXIMUM OF 60 UNITS PER DAY. [facility] levothyroxi ne (Synthroid, Levoxyl) 50 MCG tablet 2022-07 00:00: 00 08-23 00:00 :00 No [id number] TAKE 1 TABLET BY MOUTH EVERY MORNING BEFORE EATING. [facility] hydrOXYzine HCl (Atarax) 25 MG tablet 2022-07 0-05 00:00: 00 Yes [id number] TAKE 1 TABLET (25 MG TOTAL) BY MOUTH IN THE MORNING AND BEFORE BEDTIME [facility] simvastatin (Zocor) 20 MG tablet 9-19 00:00: 00 Yes [id number] 9109 TAKE 1 TABLET BY MOUTH EVERY DAY [facility] montelukast (Singulair) 10 MG tablet 9-14 00:00: 00 Yes [id number] TAKE 1 TABLET BY MOUTH EVERY DAY [facility] dulaglutide (Trulicity) 1.5 MG/0.5ML solution pen-injecto r 9-13 00:00: 00 Yes [id number] 9109 INJECT 0.5 ML (ONE PEN) WEEKLY UNDER THE SKIN [facility] cyclobenzap rine (Flexeril) 10 MG tablet 7-28 00:00: 00 05-17 00:00 :00 No [id number] TAKE 1 TABLET BY MOUTH THREE TIMES A DAY NEEDED FOR MUSCLE SPASM [facility] DULoxetine (Cymbalta) [address] capsule 5-26 00:00: 00 05-18 00:00 :00 No [id number] TAKE 1 CAPSULE BY MOUTH EVERY DAY [facility] insulin detemir (Levemir FlexTouch) 100 UNIT/ML injection 11-08 00:00: 00 Yes [id number] 35U Inject 35 Units under the skin 1 (one) time each day in the morning. [facility] enalapril-h ydroCHLOROt hiazide (Vasoretic) 10-25 MG tablet - 00:00: 00 05-18 00:00 :00 No [id number] 1{tbl} QD TAKE 1 TABLET BY MOUTH 1 (ONE) TIME EACH DAY. NEEDS OFFICE VISIT FOR ADDITIONAL REFILLS. [facility] enalapril-h ydroCHLOROt hiazide (Vasoretic) 10-25 MG tablet 09-05 00:00: 00 Yes [id number] 1{tbl} QD TAKE 1 TABLET BY MOUTH 1 (ONE) TIME EACH DAY. NEEDS OFFICE VISIT FOR ADDITIONAL REFILLS. [facility] levothyroxi ne (Synthroid, Levoxyl) 50 MCG tablet 09-05 00:00: 00 Yes [id number] TAKE 1 TABLET BY MOUTH EVERY MORNING BEFORE EATING. [facility] cyclobenzap rine (Flexeril) 10 MG tablet 09-03 00:00: 00 Yes [id number] TAKE 1 TABLET BY MOUTH THREE TIMES A DAY NEEDED FOR MUSCLE SPASM [facility] Accu-Chek Softclix Lancets lancets 08-22 00:00: 00 08-23 05:59 :00 No [id number] Before each meal and at bedtime [facility] glucose blood (Accu-Chek Jennifer Plus) test strip 08-22 00:00: 00 08-23 05:59 :00 No [id number] Before each meal and at bedtime. [facility] celecoxib (CeleBREX) 200 MG capsule 08-10 00:00: 00 Yes [id number] 200mg QD Take 1 capsule (200 mg total) by mouth 1 (one) time each day. [facility] insulin detemir (Levemir FlexTouch) 100 UNIT/ML injection 08-10 00:00: 00 Yes [id number] 35U Inject 35 Units under the skin 1 (one) time each day in the morning. [facility] gabapentin (Neurontin) 800 MG tablet 08-10 00:00: 00 08-11 05:59 :00 No [id number] 800mg Q.[id number] 3D Take 1 tablet (800 mg total) by mouth in the morning and 1 tablet (800 mg total) at noon and 1 tablet (800 mg total) in the evening. [facility] cyclobenzap rine (Flexeril) 10 MG tablet 08-07 00:00: 00 Yes [id number] TAKE 1 TABLET BY MOUTH THREE TIMES A DAY NEEDED FOR MUSCLE SPASM [facility] dulaglutide (Trulicity) 1.5 MG/0.5ML solution pen-injecto r 07-25 00:00: 00 Yes [id number] 9109 INJECT 0.5 ML (ONE PEN) WEEKLY UNDER THE SKIN [facility] montelukast (Singulair) 10 MG tablet 07-25 00:00: 00 Yes [id number] TAKE 1 TABLET BY MOUTH EVERY DAY [facility] hydrOXYzine HCl (Atarax) 25 MG tablet 2021-07 00:00: 00 Yes [id number] 25mg Q.5D Take 1 tablet (25 mg total) by mouth in the morning and 1 tablet (25 mg total) before bedtime. [facility] insulin detemir (Levemir FlexTouch) 100 UNIT/ML injection 2021-07 00:00: 00 08-10 00:00 :00 No [id number] INJECT 20 UNITS SUBCUTANEO USLY DAILY [facility] enalapril-h ydroCHLOROt hiazide (Vasoretic) 10-25 MG tablet 2021-07 00:00: 00 Yes [id number] 1{tbl} QD TAKE 1 TABLET BY MOUTH 1 (ONE) TIME EACH DAY. NEEDS OFFICE VISIT FOR ADDITIONAL REFILLS. [facility] levothyroxi ne (Synthroid, Levoxyl) 50 MCG tablet 2021-07 00:00: 00 Yes [id number] TAKE 1 TABLET BY MOUTH EVERY MORNING BEFORE EATING. [facility] simvastatin (Zocor) 20 MG tablet 2021-07 00:00: 00 Yes [id number] TAKE 1 TABLET (20 MG TOTAL) BY MOUTH ONCE DAILY [facility] Insulin Pen Needle (BD Pen Needle Theresa U/F) 32G X 4 MM misc 2021-07 00:00: 00 Yes [id number] 9109 USE UP TO 5 TIMES DAILY [facility] insulin aspart (NovoLOG FLEXPEN) 100 UNIT/ML injection 2021-07 00:00: 00 Yes [id number] 9109 22U Q.[id number] 3D INJECT 22 UNITS UNDER THE SKIN 3 (THREE) TIMES A DAY. MAXIMUM OF 60 UNITS PER DAY [facility] pregabalin (Lyrica) 100 MG capsule 2021-07 00:00: 00 08-10 00:00 :00 No [id number] TAKE 1 CAPSULE BY MOUTH THREE TIMES A DAY [facility] cetirizine (ZyrTEC) 10 MG tablet 03-09 09:00: 22 Yes TAKE 1 TABLET TWICE DAILY [facility] albuterol 108 (90 Base) MCG/ACT inhaler 03-09 09:00: 22 Yes albuterol sulfate HFA 90 mcg/actuat ion aerosol inhaler [facility] glucose blood test strip 03-09 09:00: 22 Yes Accu-Chek Jennifer Plus test strips USE 1 STRIP 4 TIMES A DAY [facility] insulin detemir (Levemir) 100 UNIT/ML injection 03-09 09:00: 22 Yes 35U Inject 35 Units under the skin 1 (one) time each day in the morning. [facility] glucose blood test strip 03-09 09:00: 22 Yes Accu-Chek Jennifer Plus test strips USE 1 STRIP 4 TIMES A DAY [facility] DULoxetine (Cymbalta) [address] capsule 03-09 00:00: 00 03-09 00:00 :00 No [id number] TAKE 1 CAPSULE BY MOUTH EVERY DAY [facility] Trulicity 1.5 MG/0.5ML solution pen-injecto r 03-07 00:00: 00 Yes [id number] 9109 INJECT 0.5 ML (ONE PEN) WEEKLY UNDER THE SKIN [facility] cyclobenzap rine (Flexeril) 10 MG tablet 03-05 00:00: 00 Yes [id number] TAKE 1 TABLET BY MOUTH 3 TIMES A DAY IF NEEDED FOR MUSCLE SPASMS. [facility] pregabalin (Lyrica) 100 MG capsule 02-08 00:00: 00 Yes [id number] TAKE 1 CAPSULE BY MOUTH THREE TIMES A DAY [facility] simvastatin (Zocor) 20 MG tablet 01-29 00:00: 00 Yes [id number] 9109 TAKE 1 TABLET (20 MG TOTAL) BY MOUTH ONE TIME EACH DAY [facility] montelukast (Singulair) 10 MG tablet 01-29 00:00: 00 Yes [id number] TAKE 1 TABLET BY MOUTH EVERY DAY [facility] enalapril-h ydroCHLOROt hiazide (Vasoretic) 10-25 MG tablet 01-29 00:00: 00 Yes [id number] 1{tbl} QD TAKE 1 TABLET BY MOUTH 1 (ONE) TIME EACH DAY. NEEDS OFFICE VISIT FOR ADDITIONAL REFILLS. [facility] NovoLOG FLEXPEN 100 UNIT/ML injection 01-29 00:00: 00 Yes [id number] 9109 22U Q.[id number] 3D INJECT 22 UNITS UNDER THE SKIN 3 (THREE) TIMES A DAY. MAXIMUM OF 60 UNITS PER DAY [facility] levothyroxi ne (Synthroid, Levoxyl) 50 MCG tablet 01-29 00:00: 00 Yes [id number] TAKE 1 TABLET BY MOUTH EVERY MORNING BEFORE EATING. [facility] hydrOXYzine HCl (Atarax) 25 MG tablet 01-18 00:00: 00 Yes [id number] TAKE 1 TABLET BY MOUTH TWICE A DAY [facility] celecoxib (CeleBREX) 200 MG capsule 01-02 00:00: 00 Yes [id number] TAKE 1 CAPSULE BY MOUTH TWICE A DAY [facility] Trulicity 1.5 MG/0.5ML solution pen-injecto r 12-04 00:00: 00 Yes [id number] 9109 INJECT 0.5 ML (ONE PEN) WEEKLY UNDER THE SKIN [facility] pregabalin (Lyrica) 100 MG capsule 12-04 00:00: 00 Yes [id number] 100mg Q.[id number] 3D Take 1 capsule (100 mg total) by mouth 3 (three) times a day. [facility] methylPREDN ISolone (Medrol Dospak) 4 MG tablets 12-04 00:00: 00 03-09 00:00 :00 No [id number] Follow schedule on package instructio ns [facility] insulin detemir (Levemir) 100 UNIT/ML injection 12-01 10:30: 19 03-02 00:00 :00 No 35U Inject 35 Units under the skin 1 (one) time each day in the morning. [facility] cetirizine (ZyrTEC) 10 MG tablet 12-01 10:24: 07 Yes TAKE 1 TABLET TWICE DAILY [facility] albuterol 108 (90 Base) MCG/ACT inhaler 12-01 10:24: 07 Yes albuterol sulfate HFA 90 mcg/actuat ion aerosol inhaler [facility] glucose blood test strip 12-01 10:24: 07 Yes Accu-Chek Jennifer Plus test strips USE 1 STRIP 4 TIMES A DAY [facility] montelukast (Singulair) 10 MG tablet 11-27 00:00: 00 Yes [id number] TAKE 1 TABLET BY MOUTH EVERY DAY [facility] cyclobenzap rine (Flexeril) 10 MG tablet 11-20 00:00: 00 Yes [id number] TAKE 1 TABLET BY MOUTH 3 TIMES A DAY IF NEEDED FOR MUSCLE SPASMS. [facility] levothyroxi ne (Synthroid, Levoxyl) 50 MCG tablet 11-16 00:00: 00 Yes [id number] TAKE 1 TABLET BY MOUTH EVERY MORNING BEFORE EATING. [facility] simvastatin (Zocor) 20 MG tablet 11-14 00:00: 00 Yes [id number] TAKE 1 TABLET (20 MG TOTAL) BY MOUTH ONE TIME EACH DAY [facility] enalapril-h ydroCHLOROt hiazide (Vasoretic) 10-25 MG tablet 11-14 00:00: 00 Yes [id number] 1{tbl} QD TAKE 1 TABLET BY MOUTH 1 (ONE) TIME EACH DAY. NEEDS OFFICE VISIT FOR ADDITIONAL REFILLS. [facility] DULoxetine (Cymbalta) [address] capsule 11-14 00:00: 00 03-09 00:00 :00 No [id number] TAKE 1 CAPSULE BY MOUTH EVERY DAY [facility] hydrOXYzine HCl (Atarax) 25 MG tablet 2022-0 3-31 00:00: 00 Yes [id number] TAKE 1 TABLET BY MOUTH TWICE A DAY [facility] NovoLOG FLEXPEN 100 UNIT/ML injection 3-25 00:00: 00 Yes [id number] 9109 22U Q.[id number] 3D INJECT 22 UNITS UNDER THE SKIN 3 (THREE) TIMES A DAY. MAXIMUM OF 60 UNITS PER DAY [facility] celecoxib (CeleBREX) 200 MG capsule 2-25 00:00: 00 Yes [id number] TAKE 1 CAPSULE BY MOUTH TWICE A DAY FOR 90 DAYS [facility] fluticasone -salmeterol (Advair Diskus) 250-50 MCG/DOSE diskus inhaler 2020-07 1-16 00:00: 00 05-18 00:00 :00 No [id number] TAKE 2 PUFFS BY MOUTH ONCE EVERY DAY [facility] cetirizine (ZyrTEC) 10 MG tablet 03-24 14:39: 36 Yes TAKE 1 TABLET TWICE DAILY [facility] albuterol 108 (90 Base) MCG/ACT inhaler 03-24 14:39: 36 Yes albuterol sulfate HFA 90 mcg/actuat ion aerosol inhaler [facility] traMADol ER (Ultram-ER) 100 MG 24 hr tablet 03-24 14:39: 36 Yes tramadol ER 100 mg tablet,ext ended release 24 hr [facility] insulin aspart (NovoLOG FLEXPEN) 100 UNIT/ML injection 8-13 00:00: 00 Yes [id number] 9109 20U Q.[id number] 3D Inject 20 Units under the skin 3 (three) times a day. MAXIMUM OF 60 UNITS PER DAY [facility] simvastatin (Zocor) 20 MG tablet 8- 00:00: 00 Yes [id number] 9109 TAKE 1 TABLET BY MOUTH EVERY DAY [facility] montelukast (Singulair) 10 MG tablet 7-06 00:00: 00 Yes [id number] TAKE 1 TABLET BY MOUTH EVERY DAY [facility] nortriptyli ne (Pamelor) 10 MG capsule 5-27 00:00: 00 Yes [id number] TAKE 2 CAPSULES BY MOUTH EVERY DAY AT BEDTIME [facility] fluticasone -salmeterol (Advair Diskus) 250-50 MCG/DOSE diskus inhaler 5-19 00:00: 00 Yes [id number] 2 puffs once A day [facility] traMADol (Ultram) 50 MG tablet 11-08 00:00: 00 Yes [facility] DULoxetine (Cymbalta) [address] capsule - 00:00: 00 Yes TAKE 1 CAPSULE ONCE DAILY FOR 1 WEEK, THEN TAKE 2 CAPSULES DAILY FOR DEPRESSION AND ANXIETY.DO NOT TAKE WITH ASPIRIN, IBUPROFEN, NAPROXEN, ALEVE, OR MOTRIN. [facility] acetaminoph en-codeine (Tylenol w/ Codeine #3) 300-30 MG tablet 3-22 00:00: 00 Yes TAKE 1 TO 2 TABLETS BY MOUTH EVERY 4 TO 6 HOURS NEEDED FOR PAIN [facility] nortriptyli ne (Pamelor) 25 MG capsule 3-08 00:00: 00 Yes PLEASE SEE ATTACHED FOR DETAILED DIRECTIONS [facility] methylPREDN ISolone (Medrol Dospak) 4 MG tablets 3-05 00:00: 00 Yes TAKE 1 DOSE PK(S) BY ORAL ROUTE DIRECTED. [facility] Accu-Chek Jennifer Plus test strip 2- 00:00: 00 Yes USE 1 STRIP 4 TIMES A DAY [facility] BD Pen Needle Theresa U/F 32G X 4 MM misc 2019-07 0-12 00:00: 00 Yes USE UP TO 5 TIMES DAILY [facility] Montelukast Sodium 10 MG Oral Tablet Montelukast Sodium 10 MG Oral Tablet 2019-07 0 00:00: 00 Yes TERESSA SU M.D. TAKE 1 TABLET BY MOUTH EVERY DAY [facility] FreeStyle Wilder 14 Day [place] Device FreeStyle Wilder 14 Day [place] Device 03-25 00:00: 00 Yes TERESSA SU M.D. USE DIRECTED [facility] FreeStyle Wilder 14 Day Sensor FreeStyle Wilder 14 Day Sensor 03-25 00:00: 00 Yes TERESSA SU M.D. Check blood glucose twice daily - 1 sensor is good for 14 days. [facility] [employer] [facility] Continuous Blood Gluc [employer] Product Analyst (FreeStyle Wilder 14 Day [place]) device 03-25 00:00: 00 03-02 00:00 :00 No USE DIRECTED [facility] insulin detemir (Levemir FlexTouch) 100 UNIT/ML injection 03-24 00:00: 00 Yes INJECT 20 UNIT DAILY [facility] Accu-Chek Jennifer Plus w/Device Kit Accu-Chek Jennifer Plus w/Device Kit 10-09 00:00: 00 Yes TERESSA GEORGES M.D. USE DIRECTED. [facility] Accu-Chek Jennifer Plus In Vitro Strip Accu-Chek Jennifer Plus In Vitro Strip 10-09 00:00: 00 Yes TERESSA GEORGES M.D. USE 1 STRIP 4 TIMES A DAY [facility] Blood Glucose Monitoring Suppl (Accu-Chek Jennifer Plus) w/Device kit 10-09 00:00: 00 03-02 00:00 :00 No USE DIRECTED. [facility] cyclobenzap rine (Flexeril) 10 MG tablet 10-21 00:00: 00 Yes cyclobenza yoshi 10 mg tablet [facility] NovoLOG FlexPen 100 UNIT/ML Subcutaneou s Solution Pen-injecto r NovoLOG FlexPen 100 UNIT/ML Subcutaneou s Solution Pen-injecto r 10-08 00:00: 00 Yes TERESSA SU M.D. 20 Q0.3333D INJECT 20 UNIT 3 TIMES DAILY [facility] glimepiride (Amaryl) 2 MG tablet 2015-07 00:00: 00 Yes TAKE 1 TABLET BY MOUTH TWO TIMES DAILY. [facility] dulaglutide (Trulicity) 1.5 MG/0.5ML solution pen-injecto r 07-27 00:00: 00 Yes INJECT 0.5 ML (ONE PEN) WEEKLY UNDER THE SKIN [facility] Levothyroxi ne Sodium 50 MCG Oral Tablet Levothyroxi ne Sodium 50 MCG Oral Tablet 12-19 00:00: 00 Yes TERESSA GEORGES M.D. TAKE 1 TABLET BY MOUTH EVERY MORNING BEFORE EATING. [facility] BD Pen Needle Theresa U/F 32G X 4 MM BD Pen Needle Theresa U/F 32G X 4 MM 08-18 00:00: 00 Yes TERESSA GEORGES M.D. USE UP TO 5 TIMES DAILY [facility] Aspirin 81 MG TABS Aspirin 81 MG TABS 2011-07 00:00: 00 Yes 1 QD TAKE 1 TABLET DAILY [facility] Aspirin Buf,CaCarb- MgCarb-MgO, 81 MG tablet 2011-07 00:00: 00 Yes TAKE 1 TABLET DAILY [facility] Aspirin Buf,CaCarb- MgCarb-MgO, 81 MG tablet 2011-07 00:00: 00 05-18 00:00 :00 No TAKE 1 TABLET DAILY [facility] NovoLOG FlexPen 100 UNIT/ML Subcutaneou s Solution Pen-injecto r NovoLOG FlexPen 100 UNIT/ML Subcutaneou s Solution Pen-injecto r 12-26 00:00: 00 Yes TERESSA SU M.D. Q0.3333D INJECT UNDER THE SKIN 15 UNITS 3 [facility] 300 MG capsule 2010-07 00:00: 00 Yes TAKE 1 CAPSULE 3 TIMES DAILY [facility] Enalapril-h ydroCHLOROt hiazide 10-25 MG Oral Tablet Enalapril-h ydroCHLOROt hiazide 10-25 MG Oral Tablet 10-04 00:00: 00 Yes TERESSA SU M.D. TAKE 1 TABLET BY MOUTH EVERY DAY. CALL OFFICE, NEEDS VISIT. [facility] Simvastatin 20 MG Oral Tablet Simvastatin 20 MG Oral Tablet 10-04 00:00: 00 Yes ADELE BRADEN M.D. TAKE 1 TABLET BY MOUTH EVERY DAY [facility] Singulair 10 MG Oral Tablet Singulair 10 MG Oral Tablet 2007-07 00:00: 00 Yes TERESSA SU M.D. QD TAKE 1 TABLET DAILY DIRECTED. [facility] Advair Diskus 250-50 MCG/DOSE MISC Advair Diskus 250-50 MCG/DOSE MISC 2007-07 00:00: 00 Yes 1 Q0.5D INHALE 1 PUFFS TWICE DAILY [facility] Immunizations Ordered Immunization Name Filled Immunization Name Date Status Comments Source Influenza, seasonal, injectable, preservative free (Afluria, Fluarix, Flulaval, Fluzone) 2024-04-13 00:00:00 Completed Influenza, seasonal, injectable, preservative free (Afluria, Fluarix, Flulaval, Fluzone) 2024-04-13 00:00:00 Completed [facility] Influenza, seasonal, injectable, preservative free (Afluria, Fluarix, Flulaval, Fluzone) 2024-04-13 00:00:00 Completed [facility] Influenza, seasonal, injectable, preservative free (Afluria, Fluarix, Flulaval, Fluzone) 2024-04-13 00:00:00 Completed [facility] Influenza, seasonal, injectable, preservative free (Afluria, Fluarix, Flulaval, Fluzone) 2024-04-13 00:00:00 Completed [facility] Influenza, seasonal, injectable, preservative free (Afluria, Fluarix, Flulaval, Fluzone) 2024-04-13 00:00:00 Completed [facility] Influenza, injectable, quadrivalent, preservative free (afluria, fluarix, flulaval, fluzone) 2023-05-17 00:00:00 Completed [facility] Pneumococcal Conjugate PCV 20 2023-05-17 00:00:00 Completed Influenza, injectable, quadrivalent, preservative free (afluria, fluarix, flulaval, fluzone) 2023-05-17 00:00:00 Completed [facility] Pneumococcal Conjugate PCV 20 2023-05-17 00:00:00 Completed Influenza, injectable, quadrivalent, preservative free (afluria, fluarix, flulaval, fluzone) 2023-05-17 00:00:00 Completed [facility] Pneumococcal Conjugate PCV 20 2023-05-17 00:00:00 Completed Influenza, injectable, quadrivalent, preservative free (afluria, fluarix, flulaval, fluzone) 2023-05-17 00:00:00 Completed [facility] Pneumococcal Conjugate PCV 20 2023-05-17 00:00:00 Completed Influenza, injectable, quadrivalent, preservative free (afluria, fluarix, flulaval, fluzone) 2023-05-17 00:00:00 Completed [facility] Pneumococcal Conjugate PCV 20 2023-05-17 00:00:00 Completed Influenza, injectable, quadrivalent, preservative free (afluria, fluarix, flulaval, fluzone) 2023-05-17 00:00:00 Completed [facility] Pneumococcal Conjugate PCV 20 2023-05-17 00:00:00 Completed [facility] 2022-08-10 00:00:00 Completed [facility] Tdap 2022-08-10 00:00:00 Completed [facility]ap 2022-08-10 00:00:00 Completed [facility]ap 2022-08-10 00:00:00 Completed [facility] 2022-08-10 00:00:00 Completed [facility] 2022-08-10 00:00:00 Completed [facility]ap 2022-08-10 00:00:00 Completed [facility] 2022-08-10 00:00:00 Completed [facility]ap 2022-08-10 00:00:00 Completed [facility] 2022-08-10 00:00:00 Completed [facility] 2022-08-10 00:00:00 Completed [facility] 2022-08-10 00:00:00 Completed COVID-19 Pfizer 12 & Over Vaccination (PURPLE-DILUTE) 2021-06-26 00:00:00 Completed [facility] COVID-19 Pfizer 12 & Over Vaccination (PURPLE-DILUTE) 2021-06-26 00:00:00 Completed [facility] COVID-19 Pfizer 12 & Over Vaccination (PURPLE-DILUTE) 2021-06-26 00:00:00 Completed [facility] COVID-19 Pfizer 12 & Over Vaccination (PURPLE-DILUTE) 2021-06-26 00:00:00 Completed [facility] COVID-19 Pfizer 12 & Over Vaccination (PURPLE-DILUTE) 2021-06-26 00:00:00 Completed [facility] COVID-19 Pfizer 12 & Over Vaccination (PURPLE-DILUTE) 2021-06-26 00:00:00 Completed [facility] COVID-19 Pfizer 12 & Over Vaccination (PURPLE-DILUTE) 2021-06-26 00:00:00 Completed [facility] COVID-19 Pfizer 12 & Over Vaccination (PURPLE-DILUTE) 2021-06-26 00:00:00 Completed [facility] COVID-19 Pfizer 12 & Over Vaccination (PURPLE-DILUTE) 2021-06-26 00:00:00 Completed [facility] COVID-19 Pfizer 12 & Over Vaccination (PURPLE-DILUTE) 2021-06-26 00:00:00 Completed [facility] COVID-19 Pfizer 12 & Over Vaccination (PURPLE-DILUTE) 2021-06-26 00:00:00 Completed [facility] COVID-19 Pfizer 12 & Over Vaccination (PURPLE-DILUTE) 2021-06-26 00:00:00 Completed [facility] SARS-CoV-2, Unspecified 2021-01-06 00:00:00 Completed [facility] COVID-19 Pfizer 12 & Over Vaccination (PURPLE-DILUTE) 2021-01-06 00:00:00 Completed [facility] SARS-CoV-2, Unspecified 2021-01-06 00:00:00 Completed [facility] COVID-19 Pfizer 12 & Over Vaccination (PURPLE-DILUTE) 2021-01-06 00:00:00 Completed [facility] SARS-CoV-2, Unspecified 2021-01-06 00:00:00 Completed [facility] COVID-19 Pfizer 12 & Over Vaccination (PURPLE-DILUTE) 2021-01-06 00:00:00 Completed [facility] SARS-CoV-2, Unspecified 2021-01-06 00:00:00 Completed [facility] COVID-19 Pfizer 12 & Over Vaccination (PURPLE-DILUTE) 2021-01-06 00:00:00 Completed [facility] SARS-CoV-2, Unspecified 2021-01-06 00:00:00 Completed [facility] COVID-19 Pfizer 12 & Over Vaccination (PURPLE-DILUTE) 2021-01-06 00:00:00 Completed [facility] SARS-CoV-2, Unspecified 2021-01-06 00:00:00 Completed [facility] COVID-19 Pfizer 12 & Over Vaccination (PURPLE-DILUTE) 2021-01-06 00:00:00 Completed [facility] SARS-CoV-2, Unspecified 2021-01-06 00:00:00 Completed [facility] COVID-19 Pfizer 12 & Over Vaccination (PURPLE-DILUTE) 2021-01-06 00:00:00 Completed [facility] SARS-CoV-2, Unspecified 2021-01-06 00:00:00 Completed [facility] COVID-19 Pfizer 12 & Over Vaccination (PURPLE-DILUTE) 2021-01-06 00:00:00 Completed [facility] SARS-CoV-2, Unspecified 2021-01-06 00:00:00 Completed [facility] COVID-19 Pfizer 12 & Over Vaccination (PURPLE-DILUTE) 2021-01-06 00:00:00 Completed [facility] SARS-CoV-2, Unspecified 2021-01-06 00:00:00 Completed [facility] COVID-19 Pfizer 12 & Over Vaccination (PURPLE-DILUTE) 2021-01-06 00:00:00 Completed [facility] SARS-CoV-2, Unspecified 2021-01-06 00:00:00 Completed COVID-19 Pfizer 12 & Over Vaccination (PURPLE-DILUTE) 2021-01-06 00:00:00 Completed [facility] SARS-CoV-2, Unspecified 2021-01-06 00:00:00 Completed COVID-19 Pfizer 12 & Over Vaccination (PURPLE-DILUTE) 2021-01-06 00:00:00 Completed [facility] SARS-CoV-2, Unspecified 2021-01-06 00:00:00 Completed COVID-19 Pfizer 12 & Over Vaccination (PURPLE-DILUTE) 2021-01-06 00:00:00 Completed [facility] SARS-CoV-2, Unspecified 2021-01-06 00:00:00 Completed COVID-19 Pfizer 12 & Over Vaccination (PURPLE-DILUTE) 2021-01-06 00:00:00 Completed [facility] SARS-CoV-2, Unspecified 2021-01-06 00:00:00 Completed COVID-19 Pfizer 12 & Over Vaccination (PURPLE-DILUTE) 2021-01-06 00:00:00 Completed [facility] SARS-CoV-2, Unspecified 2021-01-06 00:00:00 Completed COVID-19 Pfizer 12 & Over Vaccination (PURPLE-DILUTE) 2021-01-06 00:00:00 Completed [facility] SARS-CoV-2, Unspecified 2020-12-16 00:00:00 Completed COVID-19 Pfizer 12 & Over Vaccination (PURPLE-DILUTE) 2020-12-16 00:00:00 Completed [facility] SARS-CoV-2, Unspecified 2020-12-16 00:00:00 Completed COVID-19 Pfizer 12 & Over Vaccination (PURPLE-DILUTE) 2020-12-16 00:00:00 Completed [facility] SARS-CoV-2, Unspecified 2020-12-16 00:00:00 Completed COVID-19 Pfizer 12 & Over Vaccination (PURPLE-DILUTE) 2020-12-16 00:00:00 Completed [facility] SARS-CoV-2, Unspecified 2020-12-16 00:00:00 Completed COVID-19 Pfizer 12 & Over Vaccination (PURPLE-DILUTE) 2020-12-16 00:00:00 Completed [facility] SARS-CoV-2, Unspecified 2020-12-16 00:00:00 Completed COVID-19 Pfizer 12 & Over Vaccination (PURPLE-DILUTE) 2020-12-16 00:00:00 Completed [facility] SARS-CoV-2, Unspecified 2020-12-16 00:00:00 Completed [facility] COVID-19 Pfizer 12 & Over Vaccination (PURPLE-DILUTE) 2020-12-16 00:00:00 Completed [facility] SARS-CoV-2, Unspecified 2020-12-16 00:00:00 Completed [facility] COVID-19 Pfizer 12 & Over Vaccination (PURPLE-DILUTE) 2020-12-16 00:00:00 Completed [facility] SARS-CoV-2, Unspecified 2020-12-16 00:00:00 Completed [facility] COVID-19 Pfizer 12 & Over Vaccination (PURPLE-DILUTE) 2020-12-16 00:00:00 Completed [facility] SARS-CoV-2, Unspecified 2020-12-16 00:00:00 Completed [facility] COVID-19 Pfizer 12 & Over Vaccination (PURPLE-DILUTE) 2020-12-16 00:00:00 Completed [facility] SARS-CoV-2, Unspecified 2020-12-16 00:00:00 Completed [facility] COVID-19 Pfizer 12 & Over Vaccination (PURPLE-DILUTE) 2020-12-16 00:00:00 Completed [facility] SARS-CoV-2, Unspecified 2020-12-16 00:00:00 Completed [facility] COVID-19 Pfizer 12 & Over Vaccination (PURPLE-DILUTE) 2020-12-16 00:00:00 Completed [facility] SARS-CoV-2, Unspecified 2020-12-16 00:00:00 Completed [facility] COVID-19 Pfizer 12 & Over Vaccination (PURPLE-DILUTE) 2020-12-16 00:00:00 Completed [facility] SARS-CoV-2, Unspecified 2020-12-16 00:00:00 Completed [facility] COVID-19 Pfizer 12 & Over Vaccination (PURPLE-DILUTE) 2020-12-16 00:00:00 Completed [facility] SARS-CoV-2, Unspecified 2020-12-16 00:00:00 Completed [facility] COVID-19 Pfizer 12 & Over Vaccination (PURPLE-DILUTE) 2020-12-16 00:00:00 Completed [facility] SARS-CoV-2, Unspecified 2020-12-16 00:00:00 Completed [facility] COVID-19 Pfizer 12 & Over Vaccination (PURPLE-DILUTE) 2020-12-16 00:00:00 Completed [facility] SARS-CoV-2, Unspecified 2020-12-16 00:00:00 Completed COVID-19 Pfizer 12 & Over Vaccination (PURPLE-DILUTE) 2020-12-16 00:00:00 Completed [facility] Influenza, injectable, quadrivalent (afluria, fluzone) 2020-04-14 00:00:00 Completed [facility] Pneumococcal Conjugate PCV 7 2020-04-14 00:00:00 Completed [facility] Influenza, injectable, quadrivalent (afluria, fluzone) 2020-04-14 00:00:00 Completed [facility] Pneumococcal Conjugate PCV 7 2020-04-14 00:00:00 Completed [facility] Influenza, injectable, quadrivalent (afluria, fluzone) 2020-04-14 00:00:00 Completed [facility] Pneumococcal Conjugate PCV 7 2020-04-14 00:00:00 Completed [facility] Influenza, injectable, quadrivalent (afluria, fluzone) 2020-04-14 00:00:00 Completed [facility] Pneumococcal Conjugate PCV 7 2020-04-14 00:00:00 Completed [facility] Influenza, injectable, quadrivalent (afluria, fluzone) 2020-04-14 00:00:00 Completed [facility] Pneumococcal Conjugate PCV 7 2020-04-14 00:00:00 Completed [facility] Influenza, injectable, quadrivalent (afluria, fluzone) 2020-04-14 00:00:00 Completed [facility] Pneumococcal Conjugate PCV 7 2020-04-14 00:00:00 Completed [facility] Influenza, injectable, quadrivalent (afluria, fluzone) 2020-04-14 00:00:00 Completed [facility] Pneumococcal Conjugate PCV 7 2020-04-14 00:00:00 Completed [facility] Influenza, injectable, quadrivalent (afluria, fluzone) 2020-04-14 00:00:00 Completed [facility] Pneumococcal Conjugate PCV 7 2020-04-14 00:00:00 Completed [facility] Influenza, injectable, quadrivalent (afluria, fluzone) 2020-04-14 00:00:00 Completed [facility] Pneumococcal Conjugate PCV 7 2020-04-14 00:00:00 Completed [facility] Influenza, injectable, quadrivalent (afluria, fluzone) 2020-04-14 00:00:00 Completed [facility] Pneumococcal Conjugate PCV 7 2020-04-14 00:00:00 Completed [facility] Influenza, injectable, quadrivalent (afluria, fluzone) 2020-04-14 00:00:00 Completed [facility] Pneumococcal Conjugate PCV 7 2020-04-14 00:00:00 Completed Influenza, injectable, quadrivalent (afluria, fluzone) 2020-04-14 00:00:00 Completed [facility] Pneumococcal Conjugate PCV 7 2020-04-14 00:00:00 Completed Influenza, injectable, quadrivalent (afluria, fluzone) 2020-04-14 00:00:00 Completed [facility] Pneumococcal Conjugate PCV 7 2020-04-14 00:00:00 Completed Influenza, injectable, quadrivalent (afluria, fluzone) 2020-04-14 00:00:00 Completed [facility] Pneumococcal Conjugate PCV 7 2020-04-14 00:00:00 Completed Influenza, injectable, quadrivalent (afluria, fluzone) 2020-04-14 00:00:00 Completed [facility] Pneumococcal Conjugate PCV 7 2020-04-14 00:00:00 Completed Influenza, injectable, quadrivalent (afluria, fluzone) 2020-04-14 00:00:00 Completed [facility] Pneumococcal Conjugate PCV 7 2020-04-14 00:00:00 Completed Influenza, injectable, quadrivalent 2020-04-14 00:00:00 Completed [facility] Pneumococcal Conjugate PCV 7 2020-04-14 00:00:00 Completed [facility] Influenza, injectable, quadrivalent 2020-04-14 00:00:00 Completed [facility] Pneumococcal Conjugate PCV 7 2020-04-14 00:00:00 Completed [facility] Influenza, injectable, quadrivalent 2020-04-14 00:00:00 Completed [facility] Pneumococcal Conjugate PCV 7 2020-04-14 00:00:00 Completed [facility] Influenza, injectable, quadrivalent 2020-04-14 00:00:00 Completed [facility] Pneumococcal Conjugate PCV 7 2020-04-14 00:00:00 Completed [facility] Influenza, seasonal, injectable 2020-01-13 00:00:00 Completed [facility] Influenza, High Dose Seasonal (fluzone) 2020-01-13 00:00:00 Completed [facility] Zoster, Recombinant 2020-01-13 00:00:00 Completed [facility] Influenza, seasonal, injectable 2020-01-13 00:00:00 Completed [facility] Influenza, High Dose Seasonal (fluzone) 2020-01-13 00:00:00 Completed [facility] Zoster, Recombinant 2020-01-13 00:00:00 Completed [facility] Influenza, seasonal, injectable 2020-01-13 00:00:00 Completed [facility] Influenza, High Dose Seasonal (fluzone) 2020-01-13 00:00:00 Completed [facility] Zoster, Recombinant 2020-01-13 00:00:00 Completed [facility] Influenza, seasonal, injectable 2020-01-13 00:00:00 Completed [facility] Influenza, High Dose Seasonal (fluzone) 2020-01-13 00:00:00 Completed [facility] Zoster, Recombinant 2020-01-13 00:00:00 Completed [facility] Influenza, seasonal, injectable 2020-01-13 00:00:00 Completed [facility] Influenza, High Dose Seasonal (fluzone) 2020-01-13 00:00:00 Completed [facility] Zoster, Recombinant 2020-01-13 00:00:00 Completed [facility] Influenza, seasonal, injectable 2020-01-13 00:00:00 Completed [facility] Influenza, High Dose Seasonal (fluzone) 2020-01-13 00:00:00 Completed [facility] Zoster, Recombinant 2020-01-13 00:00:00 Completed [facility] Influenza, seasonal, injectable 2020-01-13 00:00:00 Completed [facility] Influenza, High Dose Seasonal (fluzone) 2020-01-13 00:00:00 Completed [facility] Zoster, Recombinant 2020-01-13 00:00:00 Completed [facility] Influenza, seasonal, injectable 2020-01-13 00:00:00 Completed [facility] Influenza, High Dose Seasonal (fluzone) 2020-01-13 00:00:00 Completed [facility] Zoster, Recombinant 2020-01-13 00:00:00 Completed [facility] Influenza, seasonal, injectable 2020-01-13 00:00:00 Completed [facility] Influenza, High Dose Seasonal (fluzone) 2020-01-13 00:00:00 Completed [facility] Zoster, Recombinant 2020-01-13 00:00:00 Completed [facility] Influenza, seasonal, injectable 2020-01-13 00:00:00 Completed [facility] Influenza, High Dose Seasonal (fluzone) 2020-01-13 00:00:00 Completed [facility] Zoster, Recombinant 2020-01-13 00:00:00 Completed [facility] Influenza, seasonal, injectable, with preservative (Afluria, Fluzone) 2020-01-13 00:00:00 Completed Influenza, High Dose Seasonal, trivalent (fluzone) 2020-01-13 00:00:00 Completed Zoster, Recombinant 2020-01-13 00:00:00 Completed Influenza, seasonal, injectable, with preservative (Afluria, Fluzone) 2020-01-13 00:00:00 Completed Influenza, High Dose Seasonal, trivalent (fluzone) 2020-01-13 00:00:00 Completed Zoster, Recombinant 2020-01-13 00:00:00 Completed Influenza, seasonal, injectable, with preservative (Afluria, Fluzone) 2020-01-13 00:00:00 Completed Influenza, High Dose Seasonal, trivalent (fluzone) 2020-01-13 00:00:00 Completed Zoster, Recombinant 2020-01-13 00:00:00 Completed Influenza, seasonal, injectable, with preservative (Afluria, Fluzone) 2020-01-13 00:00:00 Completed Influenza, High Dose Seasonal, trivalent (fluzone) 2020-01-13 00:00:00 Completed Zoster, Recombinant 2020-01-13 00:00:00 Completed Influenza, seasonal, injectable, with preservative (Afluria, Fluzone) 2020-01-13 00:00:00 Completed Influenza, High Dose Seasonal, trivalent (fluzone) 2020-01-13 00:00:00 Completed Zoster, Recombinant 2020-01-13 00:00:00 Completed Influenza, seasonal, injectable, with preservative (Afluria, Fluzone) 2020-01-13 00:00:00 Completed Influenza, High Dose Seasonal, trivalent (fluzone) 2020-01-13 00:00:00 Completed Zoster, Recombinant 2020-01-13 00:00:00 Completed Influenza, seasonal, injectable 2020-01-13 00:00:00 Completed [facility] Influenza, seasonal, injectable 2020-01-13 00:00:00 Completed [facility] Influenza, seasonal, injectable 2020-01-13 00:00:00 Completed [facility] Influenza, seasonal, injectable 2020-01-13 00:00:00 Completed [facility] Influenza 2020-01-13 00:00:00 Completed [facility] Shingrix 50 MCG/0.5ML Intramuscular Suspension Reconstituted 2020-01-13 00:00:00 Completed [facility] Shingrix 50 MCG/0.5ML Intramuscular Suspension Reconstituted 2019-08-03 16:23:00 Completed [facility] Zoster, Recombinant 2019-08-03 00:00:00 Completed [facility] Zoster, Recombinant 2019-08-03 00:00:00 Completed [facility] Zoster, Recombinant 2019-08-03 00:00:00 Completed [facility] Zoster, Recombinant 2019-08-03 00:00:00 Completed [facility] Zoster, Recombinant 2019-08-03 00:00:00 Completed [facility] Zoster, Recombinant 2019-08-03 00:00:00 Completed [facility] Zoster, Recombinant 2019-08-03 00:00:00 Completed [facility] Zoster, Recombinant 2019-08-03 00:00:00 Completed [facility] Zoster, Recombinant 2019-08-03 00:00:00 Completed [facility] Zoster, Recombinant 2019-08-03 00:00:00 Completed [facility] Zoster, Recombinant 2019-08-03 00:00:00 Completed Zoster, Recombinant 2019-08-03 00:00:00 Completed Zoster, Recombinant 2019-08-03 00:00:00 Completed Zoster, Recombinant 2019-08-03 00:00:00 Completed Zoster, Recombinant 2019-08-03 00:00:00 Completed Zoster, Recombinant 2019-08-03 00:00:00 Completed Influenza, seasonal, injectable 2019-04-01 00:00:00 Completed [facility] Influenza, injectable, quadrivalent, preservative free (afluria, fluarix, flulaval, fluzone) 2019-04-01 00:00:00 Completed [facility] Influenza, seasonal, injectable 2019-04-01 00:00:00 Completed [facility] Influenza, injectable, quadrivalent, preservative free (afluria, fluarix, flulaval, fluzone) 2019-04-01 00:00:00 Completed [facility] Influenza, seasonal, injectable 2019-04-01 00:00:00 Completed [facility] Influenza, injectable, quadrivalent, preservative free (afluria, fluarix, flulaval, fluzone) 2019-04-01 00:00:00 Completed [facility] Influenza, seasonal, injectable 2019-04-01 00:00:00 Completed [facility] Influenza, injectable, quadrivalent, preservative free (afluria, fluarix, flulaval, fluzone) 2019-04-01 00:00:00 Completed [facility] Influenza, seasonal, injectable 2019-04-01 00:00:00 Completed [facility] Influenza, injectable, quadrivalent, preservative free (afluria, fluarix, flulaval, fluzone) 2019-04-01 00:00:00 Completed [facility] Influenza, seasonal, injectable 2019-04-01 00:00:00 Completed [facility] Influenza, injectable, quadrivalent, preservative free (afluria, fluarix, flulaval, fluzone) 2019-04-01 00:00:00 Completed [facility] Influenza, seasonal, injectable 2019-04-01 00:00:00 Completed [facility] Influenza, injectable, quadrivalent, preservative free (afluria, fluarix, flulaval, fluzone) 2019-04-01 00:00:00 Completed [facility] Influenza, seasonal, injectable 2019-04-01 00:00:00 Completed [facility] Influenza, injectable, quadrivalent, preservative free (afluria, fluarix, flulaval, fluzone) 2019-04-01 00:00:00 Completed [facility] Influenza, seasonal, injectable 2019-04-01 00:00:00 Completed [facility] Influenza, injectable, quadrivalent, preservative free (afluria, fluarix, flulaval, fluzone) 2019-04-01 00:00:00 Completed [facility] Influenza, seasonal, injectable 2019-04-01 00:00:00 Completed [facility] Influenza, injectable, quadrivalent, preservative free (afluria, fluarix, flulaval, fluzone) 2019-04-01 00:00:00 Completed [facility] Influenza, seasonal, injectable, with preservative (Afluria, Fluzone) 2019-04-01 00:00:00 Completed Influenza, injectable, quadrivalent, preservative free (afluria, fluarix, flulaval, fluzone) 2019-04-01 00:00:00 Completed Influenza, seasonal, injectable, with preservative (Afluria, Fluzone) 2019-04-01 00:00:00 Completed Influenza, injectable, quadrivalent, preservative free (afluria, fluarix, flulaval, fluzone) 2019-04-01 00:00:00 Completed Influenza, seasonal, injectable, with preservative (Afluria, Fluzone) 2019-04-01 00:00:00 Completed Influenza, injectable, quadrivalent, preservative free (afluria, fluarix, flulaval, fluzone) 2019-04-01 00:00:00 Completed Influenza, seasonal, injectable, with preservative (Afluria, Fluzone) 2019-04-01 00:00:00 Completed Influenza, injectable, quadrivalent, preservative free (afluria, fluarix, flulaval, fluzone) 2019-04-01 00:00:00 Completed Influenza, seasonal, injectable, with preservative (Afluria, Fluzone) 2019-04-01 00:00:00 Completed Influenza, injectable, quadrivalent, preservative free (afluria, fluarix, flulaval, fluzone) 2019-04-01 00:00:00 Completed Influenza, seasonal, injectable, with preservative (Afluria, Fluzone) 2019-04-01 00:00:00 Completed Influenza, injectable, quadrivalent, preservative free (afluria, fluarix, flulaval, fluzone) 2019-04-01 00:00:00 Completed Influenza, seasonal, injectable 2019-04-01 00:00:00 Completed [facility] Influenza, seasonal, injectable 2019-04-01 00:00:00 Completed [facility] Influenza, seasonal, injectable 2019-04-01 00:00:00 Completed [facility] Influenza, seasonal, injectable 2019-04-01 00:00:00 Completed [facility] Fluzone Quadrivalent 0.5 ML Intramuscular Suspension 2019-04-01 00:00:00 Completed [facility] Influenza, seasonal, injectable 2018-03-15 00:00:00 Completed [facility] Influenza, injectable, quadrivalent, preservative free (afluria, fluarix, flulaval, fluzone) 2018-03-15 00:00:00 Completed [facility] Influenza, seasonal, injectable 2018-03-15 00:00:00 Completed [facility] Influenza, injectable, quadrivalent, preservative free (afluria, fluarix, flulaval, fluzone) 2018-03-15 00:00:00 Completed [facility] Influenza, seasonal, injectable 2018-03-15 00:00:00 Completed [facility] Influenza, injectable, quadrivalent, preservative free (afluria, fluarix, flulaval, fluzone) 2018-03-15 00:00:00 Completed [facility] Influenza, seasonal, injectable 2018-03-15 00:00:00 Completed [facility] Influenza, injectable, quadrivalent, preservative free (afluria, fluarix, flulaval, fluzone) 2018-03-15 00:00:00 Completed [facility] Influenza, seasonal, injectable 2018-03-15 00:00:00 Completed [facility] Influenza, injectable, quadrivalent, preservative free (afluria, fluarix, flulaval, fluzone) 2018-03-15 00:00:00 Completed [facility] Influenza, seasonal, injectable 2018-03-15 00:00:00 Completed [facility] Influenza, injectable, quadrivalent, preservative free (afluria, fluarix, flulaval, fluzone) 2018-03-15 00:00:00 Completed [facility] Influenza, seasonal, injectable 2018-03-15 00:00:00 Completed [facility] Influenza, injectable, quadrivalent, preservative free (afluria, fluarix, flulaval, fluzone) 2018-03-15 00:00:00 Completed [facility] Influenza, seasonal, injectable 2018-03-15 00:00:00 Completed [facility] Influenza, injectable, quadrivalent, preservative free (afluria, fluarix, flulaval, fluzone) 2018-03-15 00:00:00 Completed [facility] Influenza, seasonal, injectable 2018-03-15 00:00:00 Completed [facility] Influenza, injectable, quadrivalent, preservative free (afluria, fluarix, flulaval, fluzone) 2018-03-15 00:00:00 Completed [facility] Influenza, seasonal, injectable 2018-03-15 00:00:00 Completed [facility] Influenza, injectable, quadrivalent, preservative free (afluria, fluarix, flulaval, fluzone) 2018-03-15 00:00:00 Completed [facility] Influenza, seasonal, injectable, with preservative (Afluria, Fluzone) 2018-03-15 00:00:00 Completed Influenza, injectable, quadrivalent, preservative free (afluria, fluarix, flulaval, fluzone) 2018-03-15 00:00:00 Completed Influenza, seasonal, injectable, with preservative (Afluria, Fluzone) 2018-03-15 00:00:00 Completed Influenza, injectable, quadrivalent, preservative free (afluria, fluarix, flulaval, fluzone) 2018-03-15 00:00:00 Completed Influenza, seasonal, injectable, with preservative (Afluria, Fluzone) 2018-03-15 00:00:00 Completed Influenza, injectable, quadrivalent, preservative free (afluria, fluarix, flulaval, fluzone) 2018-03-15 00:00:00 Completed Influenza, seasonal, injectable, with preservative (Afluria, Fluzone) 2018-03-15 00:00:00 Completed Influenza, injectable, quadrivalent, preservative free (afluria, fluarix, flulaval, fluzone) 2018-03-15 00:00:00 Completed Influenza, seasonal, injectable, with preservative (Afluria, Fluzone) 2018-03-15 00:00:00 Completed Influenza, injectable, quadrivalent, preservative free (afluria, fluarix, flulaval, fluzone) 2018-03-15 00:00:00 Completed Influenza, seasonal, injectable, with preservative (Afluria, Fluzone) 2018-03-15 00:00:00 Completed Influenza, injectable, quadrivalent, preservative free (afluria, fluarix, flulaval, fluzone) 2018-03-15 00:00:00 Completed Influenza, seasonal, injectable 2018-03-15 00:00:00 Completed [facility] Influenza, seasonal, injectable 2018-03-15 00:00:00 Completed [facility] Influenza, seasonal, injectable 2018-03-15 00:00:00 Completed [facility] Influenza, seasonal, injectable 2018-03-15 00:00:00 Completed [facility] Fluzone Quadrivalent 0.5 ML Intramuscular Suspension 2018-03-15 00:00:00 Completed [facility] Tdap (Adacel) 2011-05-17 09:32:00 Completed [facility] Pneumococcal polysaccharide vaccine, 23 valent 2011-05-17 09:31:00 Completed [facility] Tdap 2011-05-17 00:00:00 Completed [facility] Pneumococcal Polysaccharide PPV23 2011-05-17 00:00:00 Completed [facility] Tdap 2011-05-17 00:00:00 Completed [facility] Pneumococcal Polysaccharide PPV23 2011-05-17 00:00:00 Completed [facility] Tdap 2011-05-17 00:00:00 Completed [facility] Pneumococcal Polysaccharide PPV23 2011-05-17 00:00:00 Completed [facility] Tdap 2011-05-17 00:00:00 Completed [facility] Pneumococcal Polysaccharide PPV23 2011-05-17 00:00:00 Completed [facility] Tdap 2011-05-17 00:00:00 Completed [facility] Pneumococcal Polysaccharide PPV23 2011-05-17 00:00:00 Completed [facility] Tdap 2011-05-17 00:00:00 Completed [facility] Pneumococcal Polysaccharide PPV23 2011-05-17 00:00:00 Completed [facility] Tdap 2011-05-17 00:00:00 Completed [facility] Pneumococcal Polysaccharide PPV23 2011-05-17 00:00:00 Completed [facility] Tdap 2011-05-17 00:00:00 Completed [facility] Pneumococcal Polysaccharide PPV23 2011-05-17 00:00:00 Completed [facility] Tdap 2011-05-17 00:00:00 Completed [facility] Pneumococcal Polysaccharide PPV23 2011-05-17 00:00:00 Completed [facility] Tdap 2011-05-17 00:00:00 Completed [facility] Pneumococcal Polysaccharide PPV23 2011-05-17 00:00:00 Completed [facility] Tdap 2011-05-17 00:00:00 Completed Pneumococcal Polysaccharide PPV23 2011-05-17 00:00:00 Completed Tdap 2011-05-17 00:00:00 Completed Pneumococcal Polysaccharide PPV23 2011-05-17 00:00:00 Completed Tdap 2011-05-17 00:00:00 Completed Pneumococcal Polysaccharide PPV23 2011-05-17 00:00:00 Completed Tdap 2011-05-17 00:00:00 Completed Pneumococcal Polysaccharide PPV23 2011-05-17 00:00:00 Completed Tdap 2011-05-17 00:00:00 Completed Pneumococcal Polysaccharide PPV23 2011-05-17 00:00:00 Completed Tdap 2011-05-17 00:00:00 Completed Pneumococcal Polysaccharide PPV23 2011-05-17 00:00:00 Completed Tdap 2011-05-17 00:00:00 Completed [facility] Pneumococcal Polysaccharide PPV23 2011-05-17 00:00:00 Completed [facility] Tdap 2011-05-17 00:00:00 Completed [facility] Pneumococcal Polysaccharide PPV23 2011-05-17 00:00:00 Completed [facility] Tdap 2011-05-17 00:00:00 Completed [facility] Pneumococcal Polysaccharide PPV23 2011-05-17 00:00:00 Completed [facility] Tdap 2011-05-17 00:00:00 Completed [facility] Pneumococcal Polysaccharide PPV23 2011-05-17 00:00:00 Completed [facility] Tdap (Adacel) 2011-05-17 00:00:00 Completed [facility] Pneumococcal polysaccharide vaccine, 23 valent 2011-05-17 00:00:00 Completed [facility] Influenza, seasonal, injectable Unknown Completed [facility] Tdap Unknown Completed [facility] Pneumococcal Polysaccharide PPV23 Unknown [facility] Influ[facility], injectable, quadrivalent (afluria, fluzone) Unknown Completed [facility] Pneumococcal Conjugate PCV 7 Unknown Completed [facility] SARS-CoV-2, Unspecified Unknown Completed [facility] COVID-19 Pfizer 12 & Over Vaccination (PURPLE-DILUTE) Unknown Completed [facility] Influenza, High Dose Seasonal (fluzone) Unknown Completed [facility] Influenza, injectable, quadrivalent, preservative free (afluria, fluarix, flulaval, fluzone) Unknown Completed [facility] Zoster, Recombinant Unknown Completed [facility] COVID-19 Pfizer 12 & Over Vaccination (PURPLE-DILUTE) Unknown Completed [facility] Pneumococcal Conjugate PCV 20 Unknown Completed [facility] Influenza, High Dose Seasonal (fluzone) Unknown Completed [facility] COVID-19 Pfizer 12 & Over Vaccination (PURPLE-DILUTE) Unknown Completed [facility] Pneumococcal Conjugate PCV 20 Unknown Completed [facility] Influenza, High Dose Seasonal (fluzone) Unknown Completed [facility] COVID-19 Pfizer 12 & Over Vaccination (PURPLE-DILUTE) Unknown Completed [facility] Pneumococcal Conjugate PCV 20 Unknown Completed [facility] Influenza, seasonal, injectable Unknown Completed [facility] Tdap Unknown Completed [facility] Pneumococcal Polysaccharide PPV23 Unknown Completed [facility] Influenza, injectable, quadrivalent (afluria, fluzone) Unknown Completed [facility] Pneumococcal Conjugate PCV 7 Unknown Completed [facility] SARS-CoV-2, Unspecified Unknown Completed [facility] COVID-19 Pfizer 12 & Over Vaccination (PURPLE-DILUTE) Unknown Completed [facility] Influenza, injectable, quadrivalent, preservative free (afluria, fluarix, flulaval, fluzone) Unknown Completed [facility] Zoster, Recombinant Unknown Completed [facility] Influenza, seasonal, injectable Unknown Completed [facility] Tdap Unknown Completed [facility] Pneumococcal Polysaccharide PPV23 Unknown Completed [facility] Influenza, injectable, quadrivalent (afluria, fluzone) Unknown Completed [facility] Pneumococcal Conjugate PCV 7 Unknown Completed [facility] SARS-CoV-2, Unspecified Unknown Completed [facility] COVID-19 Pfizer 12 & Over Vaccination (PURPLE-DILUTE) Unknown Completed [facility] Influenza, injectable, quadrivalent, preservative free (afluria, fluarix, flulaval, fluzone) Unknown Completed [facility] Zoster, Recombinant Unknown Completed [facility] Influenza, seasonal, injectable Unknown Completed [facility] Tdap Unknown Completed [facility] Pneumococcal Polysaccharide PPV23 Unknown Completed [facility] Influenza, injectable, quadrivalent (afluria, fluzone) Unknown Completed [facility] Pneumococcal Conjugate PCV 7 Unknown Completed [facility] SARS-CoV-2, Unspecified Unknown Completed [facility] COVID-19 Pfizer 12 & Over Vaccination (PURPLE-DILUTE) Unknown Completed [facility] Influenza, High Dose Seasonal (fluzone) Unknown Completed [facility] Influenza, injectable, quadrivalent, preservative free (afluria, fluarix, flulaval, fluzone) Unknown Completed [facility] Zoster, Recombinant Unknown Completed [facility] COVID-19 Pfizer 12 & Over Vaccination (PURPLE-DILUTE) Unknown Completed [facility] Pneumococcal Conjugate PCV 20 Unknown Completed [facility] Influenza, seasonal, injectable Unknown Completed [facility] Tdap Unknown Completed [facility] Pneumococcal Polysaccharide PPV23 Unknown Completed [facility] Influenza, injectable, quadrivalent (afluria, fluzone) Unknown Completed [facility] Pneumococcal Conjugate PCV 7 Unknown Completed [facility] SARS-CoV-2, Unspecified Unknown Completed [facility] COVID-19 Pfizer 12 & Over Vaccination (PURPLE-DILUTE) Unknown Completed [facility] Influenza, High Dose Seasonal (fluzone) Unknown Completed [facility] Influenza, injectable, quadrivalent, preservative free (afluria, fluarix, flulaval, fluzone) Unknown Completed [facility] Zoster, Recombinant Unknown Completed [facility] COVID-19 Pfizer 12 & Over Vaccination (PURPLE-DILUTE) Unknown Completed [facility] Pneumococcal Conjugate PCV 20 Unknown Completed [facility] Influenza, seasonal, injectable Unknown Completed [facility] Tdap Unknown Completed [facility] Pneumococcal Polysaccharide PPV23 Unknown Completed [facility] Influenza, injectable, quadrivalent (afluria, fluzone) Unknown Completed [facility] Pneumococcal Conjugate PCV 7 Unknown Completed [facility] SARS-CoV-2, Unspecified Unknown Completed [facility] COVID-19 Pfizer 12 & Over Vaccination (PURPLE-DILUTE) Unknown Completed [facility] Influenza, High Dose Seasonal (fluzone) Unknown Completed [facility] Influenza, injectable, quadrivalent, preservative free (afluria, fluarix, flulaval, fluzone) Unknown Completed [facility] Zoster, Recombinant Unknown Completed [facility] COVID-19 Pfizer 12 & Over Vaccination (PURPLE-DILUTE) Unknown Completed [facility] Pneumococcal Conjugate PCV 20 Unknown Completed [facility] Influenza, seasonal, injectable, with preservative (Afluria, Fluzone) Unknown Completed [facility] Tdap Unknown Completed [facility] Pneumococcal Polysaccharide PPV23 Unknown Completed [facility] Influenza, injectable, quadrivalent (afluria, fluzone) Unknown Completed [facility] Pneumococcal Conjugate PCV 7 Unknown Completed [facility] SARS-CoV-2, Unspecified Unknown Completed [facility] COVID-19 Pfizer 12 & Over Vaccination (PURPLE-DILUTE) Unknown Completed [facility] Influenza, High Dose Seasonal, trivalent (fluzone) Unknown Completed [facility] Influenza, injectable, quadrivalent, preservative free (afluria, fluarix, flulaval, fluzone) Unknown Completed [facility] Zoster, Recombinant Unknown Completed [facility] COVID-19 Pfizer 12 & Over Vaccination (PURPLE-DILUTE) Unknown Completed [facility] Pneumococcal Conjugate PCV 20 Unknown Completed [facility] Vital Signs Vital Name Observation Time Observation Value Comments S ource Systolic blood pressure 2024-07-13 19:34:00 143 mm[Hg] [facility] Diastolic blood pressure 2024-07-13 19:34:00 69 mm[Hg] [facility] Heart rate 2024-07-13 19:34:00 89 /min [facility] Body temperature 2024-07-13 19:34:00 36.5 Annmarie [facility] Body height 2024-07-13 19:34:00 162[facility] 2024-07-13 19:34:00 [facility] BMI 2024-07-13 19:34:00 31.07 kg/m2 [facility] Body height 2024-06-22 16:47:00 162.6 cm [facility] Body weight 2024-06-22 16:47:00 79[facility]833 [facility] BMI 2024-06-22 16:47:00 30.21 kg/m2 [facility] Systolic blood pressure 2024-04-13 19:49:00 133 mm[Hg] [facility] Diastolic blood pressure 2024-04-13 19:49:00 72 mm[Hg] [facility] Heart rate 2024-04-13 19:49:00 90 /min [facility] Body temperature 2024-04-13 19:49:00 36.67 Annmarie [facility] Body height 2024-04-13 19:49:00 162.6 cm [facility] Body weight 2024-04-13 19:49:00 [facility].5 [facility] BMI 2024-04-13 19:49:00 29.33 kg/m2 [facility] Systolic blood pressure 2024-03-02 19:10:00 161 mm[Hg] [facility] Diastolic blood pressure 2024-03-02 19:10:00 82 mm[Hg] [facility] Heart rate 2024-03-02 19:10:00 98 /min [facility] Body temperature 2024-03-02 19:10:00 36.67 Annmarie [facility] Body height 2024-03-02 19:10:00 162.6 cm [facility] Body weight 2024-03-02 19:10:00 69.4 kg [facility] BMI 2024-03-02 19:10:00 26.26 kg/m2 [facility] Systolic blood pressure 2023-08-23 15:39:00 157 mm[Hg] [facility] Diastolic blood pressure 2023-08-23 15:39:00 91 mm[Hg] [facility] Heart rate 2023-08-23 15:39:00 101 /min [facility] Body temperature 2023-08-23 15:08:00 36.56 Annmarie [facility] Body height 2023-08-23 15:08:00 162.6 cm [facility] Body weight 2023-08-23 15:08:00 84.097 kg [facility] BMI 2023-08-23 15:08:00 31.82 kg/m2 [facility] Systolic blood pressure 2023-05-17 20:48:00 168 mm[Hg] [facility] Diastolic blood pressure 2023-05-17 20:48:00 84 mm[Hg] [facility] Heart rate 2023-05-17 20:48:00 74 /min [facility] Body temperature 2023-05-17 20:48:00 36.44 Annmarie [facility] Respiratory rate 2023-05-17 20:48:00 15 /min [facility] Body height 2023-05-17 20:48:00 162.6 cm [facility] Body weight 2023-05-17 20:48:00 87.998 kg [facility] BMI 2023-05-17 20:48:00 33.30 kg/m2 [facility] Systolic blood pressure 2022-08-31 15:17:00 162 mm[Hg] [facility] Diastolic blood pressure 2022-08-31 15:17:00 78 mm[Hg] [facility] Heart rate 2022-08-31 15:17:00 74 /min [facility] Body temperature 2022-08-31 15:17:00 36.33 Annmarie [facility] Respiratory rate 2022-08-31 15:17:00 18 /min [facility] Body height 2022-08-31 15:17:00 162.6 cm [facility] Body weight 2022-08-31 15:17:00 89.529 kg [facility] BMI 2022-08-31 15:17:00 33.88 kg/m2 [facility] Systolic blood pressure 2022-08-10 15:29:00 114 mm[Hg] [facility] Diastolic blood pressure 2022-08-10 15:29:00 72 mm[Hg] [facility] Heart rate 2022-08-10 15:29:00 91 /min [facility] Body temperature 2022-08-10 15:29:00 36.67 Annmarie [facility] Respiratory rate 2022-08-10 15:29:00 16 /min [facility] Body height 2022-08-10 15:29:00 162.6 cm [facility] Body weight 2022-08-10 15:29:00 87.998 kg [facility] BMI 2022-08-10 15:29:00 33.30 kg/m2 [facility] Systolic blood pressure 2022-03-09 13:59:00 131 mm[Hg] [facility] Diastolic blood pressure 2022-03-09 13:59:00 80 mm[Hg] [facility] Heart rate 2022-03-09 13:59:00 83 /min [facility] Body temperature 2022-03-09 13:59:00 36.11 Annmarie [facility] Respiratory rate 2022-03-09 13:59:00 16 /min [facility] Body height 2022-03-09 13:59:00 162.6 cm [facility] Body weight 2022-03-09 13:59:00 85.276 kg [facility] BMI 2022-03-09 13:59:00 32.27 kg/m2 [facility] Systolic blood pressure 2020-10-17 13:52:00 151 mm[Hg] Location: RUE; Position: Sitting [facility] Diastolic blood pressure 2020-10-17 13:52:00 90 mm[Hg] Location: RUE; Position: Sitting [facility] Body height 2020-10-17 13:52:00 64 [in_us] [facility] Weight 2020-10-17 13:52:00 196.375 [lb_av] [facility] Body mass index (BMI) [Ratio] 2020-10-17 13:52:00 33.71 kg/m2 [facility] Body temperature 2020-10-17 13:52:00 97.3 [degF] Meth od: Temporal [facility] Heart Rate 2020-10-17 13:52:00 86 /min Location : R Brachial Artery; Quality: Normal [facility] Respiratory rate 2020-10-17 13:52:00 16 /min Quality: N ormal [facility] Systolic blood pressure 2020-10-03 15:56:00 143 mm[Hg] Location: LUE; Position: Sitting [facility] Diastolic blood pressure 2020-10-03 15:56:00 78 mm[Hg] Location: LUE; Position: Sitting [facility] Body height 2020-10-03 15:56:00 64 [in_us] [facility] Weight 2020-10-03 15:56:00 198.0625 [lb_av] [facility] Body mass index (BMI) [Ratio] 2020-10-03 15:56:00 34 kg/m2 [facility] Body temperature 2020-10-03 15:56:00 98.4 [degF] Method: O ral [facility] Heart Rate 2020-10-03 15:56:00 86 /min Location : L Brachial Artery; [facility] Respiratory rate 2020-10-03 15:56:00 16 /min Quality: N ormal [facility] Procedures Procedure Date / Time Performed Performing Clinicia n Source COLOR FUNDUS PHOTOGRAPHY - OU - BOTH EYES 2024-06-03 20:31:[facility]IC NERVE - OU - BOTH EYES 2024-03-30 19:43:13 [facility], RETINA - OU - BOTH EYES 2024-03-30 19:43:13 [facility] POCT GLYCOSYLATED HEMOGLOBIN (HGB A1C) 2024-03-02 19:28:00 [facility] COMPREHENSIVE METABOLIC PANEL 2023-08-23 16:45[facility]00 [facility] 2023-08-23 16:45:00 [facility] ealth T4, FREE 2023-08-23 [facility] 2023-08-23 16:45:00 Georges, [facility] lt HEMOGLOBIN 2023-08-23 16:45:00 [facility] TSH W/REFLEX TO FT4 2023-08-23 16:45:00 [facility] LIPID PANEL WITH REFLEX TO DIRECT LDL 2023-08-23 16:45:00 [facility] ALBUMIN, RANDOM URINE W/CR (MICROALBUMIN) 2023-08-23 16:45:00 [facility] HEMOGLOBIN A1C 2023-05-17 21:37:00 Hubert Rodgers [facility] POCT GLYCOSYLATED HEMOGLOBIN (HGB A1C) 2022-03-09 15:45:00 [facility] CT LUMBAR SPINE WO CONTRAST 2021-02-24 15:35:00 Mathew Kirkpatrick [facility] XR CERVICAL SPINE 2-3 VIEWS 2021-02-01 15:16:00 Yuliet Richardson [facility] XR C-SPINE COMPLETE 6+ VIEWS 2020-12-06 16:40:00 Mathew Kirkpatrick [facility] [QL] CMP W/EGFR 2020-10-17 00:00:00 [facility] [Q] LIPID PANEL (REFL) 2020-10-17 00:00:00 [facility] [Q] CBC (INCLUDES DIFF/PLT) (REFL) 2020-10-17 00:00:00 [facility] [QL] HEMOGLOBIN A1c 2020-10-17 00:00:00 [facility] [QL] MICROALBUMIN, RANDOM URINE (W/O CREATININE) 2020-10-17 00:00:00 [facility] [QL] TSH, 3RD GENERATION W/REFLEX TO FT4 2020-10-17 00:00:00 [facility] Encounters Start Date/Time End Date/Time Encounter Type Admission Type Attending Clinicians Care Facility Care Department Encounter ID Source 2022-11-08 10:25:25 Outpatient [facility] [id number] [facility] 2022-09-20 14:19:35 Outpatient [facility] [id number] [facility] 2022-09-11 07:01:04 Outpatient [facility] [id number] [facility] 2022-08-31 08:45:00 Outpatient [facility] [id number] [facility] 2022-08-29 09:09:24 Outpatient [facility] [id number] [facility] 2022-06-26 10:31:58 Outpatient [facility] [id number] [facility] 2021-08-10 11:25:29 Outpatient GEORGESTERESSA [facility] [id number] [facility] 2021-07-25 01:05:57 Outpatient MATHEW KIRKPATRICK [facility] [id number] [facility] 2021-01-20 01:05:34 Outpatient MATHEW KIRKPATRICK [facility] [id number] [facility] 2020-12-08 12:23:48 Outpatient ALEXIASERAFINROMELIA [facility] [id number] [facility] 2020-11-19 04:16:11 Outpatient GEORGESTERESSA [facility] [id number] [facility] 2025-03-30 13:00:00 2025-03-30 13:00:00 Outpatient MEAGAN MORALES [facility] [id number] [facility] 2024-10-12 14:00:00 2024-10-12 14:00:00 Outpatient TERESSA SU [facility] [id number] [facility] 2024-08-05 10:15:00 2024-08-05 10:15:00 Outpatient KAE LINTON [facility] [id number] [facility] 2024-07-23 07:30:00 2024-07-23 07:30:00 Outpatient KAE LINTON [facility] [id number] [facility] 2024-07-14 00:00:00 2024-07-14 09:33:29 Nurse Triage Char Blake Kellie [facility] 1.2.840.114 350.1.13.58 9.2.7.2.686 [id number] [facility] 2024-07-13 00:00:00 2024-07-13 14:04:41 Clinical Support Rhoda Tapia Carol [facility] [address] 1.2.840.114 350.1.13.58 9.2.7.2.686 [id number] [facility] 2024-07-13 13:20:00 2024-07-13 13:46:43 Office Visit Teressa Su [facility] [address] 1.2.840.114 350.1.13.58 9.2.7.2.686 [id number] [facility] 2024-07-09 10:10:00 2024-07-09 10:41:23 Office Visit [facility] 1.2.840.114 350.1.13.70 8.2.7.2.686 [id number] 2024-07-09 09:56:52 2024-07-09 10:41:23 Outpatient Elective [facility] [id number] [facility] 2024-07-01 14:00:00 2024-07-01 14:00:00 Outpatient MEAGAN MORALES [facility] [id number] [facility] 2024-06-25 10:20:00 2024-06-25 10:48:11 Office Visit Kristy [facility] 1.2.840.114 350.1.13.70 8.2.7.2.686 [id number] [place] [facility] 2024-06-25 10:06:18 2024-06-25 10:48:11 Outpatient Elective KRISTY COWAN [facility] [id number] [facility] 2024-06-22 10:50:00 2024-06-22 11:32:28 Outpatient [facility] [id number] [facility] 2024-06-22 10:45:00 2024-06-22 11:19:36 Office Visit Kae Linton [facility] [address] [facility] 1.2.840.114 350.1.13.58 9.2.7.2.686 [id number] [facility] 2024-06-18 10:20:00 2024-06-18 10:59:13 Outside Procedure Chapo Kristy Wesley [facility] 1.2.840.114 350.1.13.70 8.2.7.2.686 [id number] [place] [facility] 2024-06-18 10:07:39 2024-06-18 10:59:13 Outpatient Elective KRISTY COWAN [facility] [id number] [facility]OUT 2024-06-04 11:00:00 2024-06-04 11:26:32 Consult Kristy Cowan [facility] 1.2.840.114 350.1.13.70 8.2.7.2.686 [id number] Tanika [facility] 2024-06-04 10:35:26 2024-06-04 11:26:32 Outpatient Elective KRISTY COWAN [facility] [id number] [facility] 2024-06-03 15:30:00 2024-06-03 14:46:43 Outpatient [facility] [id number] [facility] 2024-06-03 14:00:00 2024-06-03 14:46:43 Office Visit Meagan Morales [facility] [address] 1.2.840.114 350.1.13.58 9.2.7.2.686 [id number] [facility] 2024-05-19 12:36:38 2024-05-19 13:04:13 Outpatient Elective [facility] [id number] [facility] 2024-04-13 15:00:00 2024-04-13 15:45:56 Office Visit Teressa Su [facility] [address] 1.2.840.114 350.1.13.58 9.2.7.2.686 [id number] [facility] 2024-03-30 13:30:00 2024-03-30 15:38:57 Office Visit Meagan Morales [facility] [address] 1.2.840.114 350.1.13.58 9.2.7.2.686 [id number] [facility] 2024-03-30 13:55:00 2024-03-30 13:55:00 Outpatient [facility] [id number] [facility] 2024-03-30 13:50:00 2024-03-30 13:50:00 Outpatient [facility] [id number] [facility] 2024-03-02 00:00:00 2024-03-02 15:16:21 Clinical Support Rhoda Tapia Carol [facility] [address] 1.2.840.114 350.1.13.58 9.2.7.2.686 [id number] [facility] 2024-03-02 14:20:00 2024-03-02 15:02:59 Office Visit Teressa Su [facility] [address] 1.2.840.114 350.1.13.58 9.2.7.2.686 [id number] [facility] 2023-12-23 13:00:00 2023-12-23 13:00:00 Outpatient TERESSA SU [facility] [id number] [facility] 2023-08-26 00:00:00 2023-08-26 13:39:18 Clinical Support Rhoda Iyer Rhoda [facility] [address] 1.2.840.114 350.1.13.58 9.2.7.2.686 [id number] 3 [id number] [facility] 2023-08-23 08:50:00 2023-08-23 10:38:36 Office Visit Teressa Su [facility] [address] 1.2.840.114 350.1.13.58 9.2.7.2.686 [id number] [facility] 2023-08-23 00:00:00 2023-08-23 10:15:50 Clinical Support Rhoda Iyer Carol [facility] [address] 1.2.840.114 350.1.13.58 9.2.7.2.686 [id number] [facility] 2023-05-24 10:30:00 2023-05-24 10:30:00 Outpatient TERESSA SU [facility] [id number] [facility] 2023-05-17 15:40:00 2023-05-17 16:34:56 Office Visit Hubert Rodgers [facility] [address] 1.2.840.114 350.1.13.58 9.2.7.2.686 [id number] [facility] 2022-09-13 00:00:00 2022-09-13 00:00:00 Clinical Support Rhoda Iyer Rhoda [facility] [address] 1.2.840.114 350.1.13.58 9.2.7.2.686 [id number] [facility] 2022-08-31 09:10:00 2022-08-31 09:55:56 Office Visit Teressa Su [address] 1.2.840.114 350.1.13.58 9.2.7.2.686 [id number] [facility] 2022-08-31 00:00:00 2022-08-31 00:00:00 Clinical Support Rhoda Iyer Carol [facility] [address] 1.2.840.114 350.1.13.58 9.2.7.2.686 [id number] [facility] 2022-08-22 00:00:00 2022-08-22 00:00:00 Clinical Support Rhoda Iyer Carol [facility] [address] 1.2.840.114 350.1.13.58 9.2.7.2.686 [id number] 3 [id number] [facility] 2022-08-13 00:00:00 2022-08-13 00:00:00 Clinical Support Rhoda Iyer Carol [facility] [address] 1.2.840.114 350.1.13.58 9.2.7.2.686 [id number] [facility] 2022-08-10 09:10:00 2022-08-10 10:01:40 Office Visit Teressa Su [address] 1.2.840.114 350.1.13.58 9.2.7.2.686 [id number] 1 [id number] [facility] 2022-06-22 08:10:00 2022-06-22 08:10:00 Outpatient TERESSA SU [facility] [id number] [facility] 2022-03-09 09:30:00 2022-03-09 09:30:00 Office Visit Teressa Su [address] 1.2.840.114 350.1.13.58 9.2.7.2.686 [id number] 1 [id number] [facility] 2022-01-02 08:00:00 2022-01-02 08:37:36 Telemedici ne Nina Osullivan [facility] [address] 1.2.840.114 350.1.13.58 9.2.7.2.686 [id number] 8 [id number] [facility] 2021-12-29 00:00:00 2021-12-29 00:00:00 Telephone Mian Mathew Zaid [facility] [address] 1.2.840.114 350.1.13.58 9.2.7.2.686 [id number] 7 [id number] [facility] 2021-12-21 00:00:00 2021-12-21 00:00:00 Telephone Yuliet Richardson [facility] [address] 1.2.840.114 350.1.13.58 9.2.7.2.686 [id number] 7 [id number] [facility] 2021-12-04 09:15:00 2021-12-04 09:30:00 Office Visit Mathew Kirkpatrick [facility] [address] 1.2.840.114 350.1.13.58 9.2.7.2.686 [id number] 7 [id number] [facility] 2021-12-01 10:10:00 2021-12-01 11:25:20 Office Visit Teressa Su [facility] [address] 1.2.840.114 350.1.13.58 9.2.7.2.686 [id number] 1 [id number] [facility] 2021-11-16 00:00:00 2021-11-16 00:00:00 Telephone MianMathewluan [facility] [address] 1.2.840.114 350.1.13.58 9.2.7.2.686 [id number] 0 [id number] [facility] 2021-10-30 08:00:00 2021-10-30 08:49:07 Ancillary Procedure Nolvia Mendez [facility] [address] 1.2.840.114 350.1.13.58 9.2.7.2.686 [id number] 8 [id number] [facility] 2021-09-12 00:00:00 2021-09-12 00:00:00 Telephone Karen Saleem [facility] [address] 1.2.840.114 350.1.13.58 9.2.7.2.686 [id number] [facility] 2021-09-08 00:00:00 2021-09-08 00:00:00 Telephone Karen Saleem [facility] [address] 1.2.840.114 350.1.13.58 9.2.7.2.686 [id number] 8 [id number] [facility] 2021-08-28 11:30:00 2021-08-28 11:45:00 Office Visit MATHEW KIRKPATRICK [facility] [address] 1.2.840.114 350.1.13.58 9.2.7.2.686 [id number] 7 [id number] [facility] 2021-08-10 00:00:00 2021-08-10 00:00:00 Telephone Teressa Su [facility] [address] 1.2.840.114 350.1.13.58 9.2.7.2.686 [id number] 1 [id number] [facility] 2021-06-01 00:00:00 2021-06-01 00:00:00 Refill GeorgesTeressa martinez [facility] [address] 1.2.840.114 350.1.13.58 9.2.7.2.686 [id number] 1 [id number] [facility] 2021-05-28 00:00:00 2021-05-28 00:00:00 Refill Georges, Teressa [facility] [address] 1.2.840.114 350.1.13.58 9.2.7.2.686 [id number] 1 [id number] [facility] 2021-05-03 00:00:00 2021-05-03 00:00:00 Refill GeorgesTeressa de [facility] [address] 1.2.840.114 350.1.13.58 9.2.7.2.686 [id number] 1 [id number] [facility] 2021-04-26 08:17:00 2021-04-28 14:00:00 Outpatient [facility] [id number] [facility] 2021-04-15 00:00:00 2021-04-15 00:00:00 Refill GeorgesTeressa [facility] [address] 1.2.840.114 350.1.13.58 9.2.7.2.686 [id number] 1 [id number] [facility] 2021-04-13 00:00:00 2021-04-13 00:00:00 Clinical Support Rhoda Iyer Rhoda [facility] [address] 1.2.840.114 350.1.13.58 9.2.7.2.686 [id number] 3 [id number] [facility] 2021-03-31 00:00:00 2021-03-31 00:00:00 Telephone Rhoda Iyer Rhoda [facility] [address] 1.2.840.114 350.1.13.58 9.2.7.2.686 [id number] 3 [id number] [facility] 2021-03-31 00:00:00 2021-03-31 00:00:00 Telephone Rhoda IyerRhoda [facility] [address] 1.2.840.114 350.1.13.58 9.2.7.2.686 [id number] 3 [id number] [facility] 2021-03-28 00:00:00 2021-03-28 00:00:00 Refill GeorgesTeressa [facility] [address] 1.2.840.114 350.1.13.58 9.2.7.2.686 [id number] 1 [id number] [facility] 2021-03-28 00:00:00 2021-03-28 00:00:00 Refill GeorgesTeressa [facility] [address] 1.2.840.114 350.1.13.58 9.2.7.2.686 [id number] 1 [id number] [facility] 2021-03-24 14:06:31 2021-03-24 14:26:31 Office Visit Teressa Su [address] 1.2.840.114 350.1.13.58 9.2.7.2.686 [id number] 1 [id number] [facility] 2021-03-24 14:06:31 2021-03-24 14:26:31 Office Visit TERESSA SU [address] 1.2.840.114 350.1.13.58 9.2.7.2.686 [id number] 1 [id number] [facility] 2021-03-24 00:00:00 2021-03-24 00:00:00 Clinical Support Rhoda Iyererson Rhoda [facility] [address] 1.2.840.114 350.1.13.58 9.2.7.2.686 [id number] 3 [id number] [facility] 2021-03-24 00:00:00 2021-03-24 00:00:00 Clinical Support Rhoda Iyer Rhoda [facility] [address] 1.2.840.114 350.1.13.58 9.2.7.2.686 [id number] [facility] 2021-03-12 00:00:00 2021-03-12 00:00:00 Refill Teressa Su [facility] [address] 1.2.840.114 350.1.13.58 9.2.7.2.686 [id number] 1 [id number] [facility] 2021-03-12 00:00:00 2021-03-12 00:00:00 Refill Teressa Su [facility] [address] 1.2.840.114 350.1.13.58 9.2.7.2.686 [id number] 1 [id number] [facility] 2021-02-24 00:00:00 2021-02-24 00:00:00 EXT [facility] OP Mathew Kirkpatrick EXT [facility] LOCATION 1.2.840.114 350.1.13.58 9.2.7.2.686 [id number] [facility] 2021-02-24 00:00:00 2021-02-24 00:00:00 Refill Mirella Raphael Shari [facility] [address] 1.2.840.114 350.1.13.58 9.2.7.2.686 [id number] 1 [id number] [facility] 2021-02-24 00:00:00 2021-02-24 00:00:00 EXT [facility] OP Mathew Kirkpatrick EXT [facility] LOCATION 1.2.840.114 350.1.13.58 9.2.7.2.686 [id number] [facility] 2021-02-21 00:00:00 2021-02-21 00:00:00 Patient Outreach [facility] [place] [facility] [address] 1.2.840.114 350.1.13.58 9.2.7.2.686 [id number] 1 [id number] [facility] 2021-02-17 00:00:00 2021-02-17 00:00:00 EXT [facility] OP Mathew Kirkpatrick EXT [facility] LOCATION 1.2.840.114 350.1.13.58 9.2.7.2.686 [id number] 0 [id number] [facility] 2021-02-17 00:00:00 2021-02-17 00:00:00 EXT [facility] OP Mathew Kirkpatrick EXT [facility] LOCATION 1.2.840.114 350.1.13.58 9.2.7.2.686 [id number] 0 [id number] [facility] 2021-02-12 00:00:00 2021-02-12 00:00:00 Refill Teressa Su [facility] [address] 1.2.840.114 350.1.13.58 9.2.7.2.686 [id number] 1 [id number] [facility] 2021-02-11 00:00:00 2021-02-11 00:00:00 Refill Adele Braden [facility] [address] 1.2.840.114 350.1.13.58 9.2.7.2.686 [id number] 1 [id number] [facility] 2021-01-16 00:00:00 2021-01-16 00:00:00 Refill Teressa Su [facility] [address] 1.2.840.114 350.1.13.58 9.2.7.2.686 [id number] 1 [id number] [facility] 2021-01-05 00:00:00 2021-01-05 00:00:00 EXT [facility] OP Yuliet Richardson EXT [facility] LOCATION 1.2.840.114 350.1.13.58 9.2.7.2.686 [id number] 0 [id number] [facility] 2021-01-05 00:00:00 2021-01-05 00:00:00 EXT [facility] OP Yuliet Richardson M EXT [facility] LOCATION 1.2.840.114 350.1.13.58 9.2.7.2.686 [id number] 0 [id number] [facility] 2021-01-01 00:00:00 2021-01-01 00:00:00 Refill Teressa Su UTP [address] 1.2.840.114 350.1.13.58 9.2.7.2.686 [id number] 1 [id number] [facility] 2020-12-20 16:15:00 2020-12-22 11:58:00 [facility] [address] [facility] 2020-12-21 00:00:00 2020-12-21 00:00:00 Telephone Teressa Su UTP [address] 1.2.840.114 350.1.13.58 9.2.7.2.686 [id number] 1 [id number] [facility] 2020-12-08 00:00:00 2020-12-08 00:00:00 Telephone Romelia Duffy UTP [address] 1.2.840.114 350.1.13.58 9.2.7.2.686 [id number] [facility] 2020-12-08 00:00:00 2020-12-08 00:00:00 Refill Teressa Su UTP [address] 1.2.840.114 350.1.13.58 9.2.7.2.686 [id number] 1 [id number] [facility] 2020-12-06 11:36:00 2020-12-06 23:59:00 [facility] [address] [facility] 2020-12-06 00:00:00 2020-12-06 00:00:00 EXT [facility] OP Mathew Kirkpatrick EXT MSRDP LOCATION 1.2.840.114 350.1.13.58 9.2.7.2.686 [id number] 0 [id number] [facility] 2020-12-06 00:00:00 2020-12-06 00:00:00 EXT [facility] OP Mathew Kirkpatrick EXT [facility] LOCATION 1.2.840.114 350.1.13.58 9.2.7.2.686 [id number] 0 [id number] [facility] 2020-12-04 00:00:00 2020-12-04 00:00:00 Refill GeorgesTeressa may UTP [address] 1.2.840.114 350.1.13.58 9.2.7.2.686 [id number] 1 [id number] [facility] 2020-11-30 00:00:00 2020-11-30 00:00:00 Refill Merry Gruber Janice UTP [address] 1.2.840.114 350.1.13.58 9.2.7.2.686 [id number] 1 [id number] [facility] 2020-11-28 14:03:54 2020-11-28 15:02:00 Office Visit Teressa Su UTP [address] 1.2.840.114 350.1.13.58 9.2.7.2.686 [id number] 1 [id number] [facility] 2020-11-28 00:00:00 2020-11-28 00:00:00 Refill Teressa Su UTP [address] 1.2.840.114 350.1.13.58 9.2.7.2.686 [id number] 1 [id number] [facility] 2020-11-28 00:00:00 2020-11-28 00:00:00 Refill Teressa Su UTP [address] 1.2.840.114 350.1.13.58 9.2.7.2.686 [id number] 1 [id number] [facility] 2020 11:39:00 2020 23:59:00 Outpatient [facility] [address] [facility] 2020-11-21 00:00:00 2020-11-21 00:00:00 Orders Only Teressa Su UTP [address] 1.2.840.114 350.1.13.58 9.2.7.2.686 [id number] 1 [id number] [facility] 2020-10-17 14:00:00 2020-10-17 14:00:00 Elier giron; TERESSA SU M.D. IYENGAR, DEEPA, M.D. [facility] [id number] [place] [facility] 2020-10-03 15:40:00 2020-10-03 15:40:00 Appointwestley giron; TERESSA SU M.D. IYENGAR, DEEPA, M.D. [facility] [id number] [place] [facility] 2020-09-19 14:30:00 2020-09-19 14:30:00 Appointmen t; MATHEW POTTS, N.P. MATHEW POTTS, N.P. [facility] Multispecia lty - Internation [facility] [id number] [place] [facility] [place] 2020-09-09 11:30:00 2020-09-09 11:30:00 Appointmen t; CHW, NURSE CHW, NURSE [facility] UTP [id number] [facility] 2020-09-05 11:00:00 2020-09-05 11:00:00 Appointmen t; MATHEW POTTS N.P. COOK, JOHN, N.P. [facility] [id number] [facility] 2020-08-03 09:00:00 2020-08-03 09:00:00 Appointmen t; CO19, PROVIDERSI THANIA CO19, PROVIDERSIE NNA [facility] [id number] [facility] 2020-07-26 13:00:00 2020-07-26 13:00:00 Appointmen t; TERESSA SU M.D. IYENGAR, DEEPA, M.D. [facility] [id number] [facility] 2020-01-14 07:50:00 2020-01-14 07:50:00 Appointmen t; TERESSA SU M.D. IYENGAR, DEEPA, M.D. [facility] [id number] [facility] 2019-10-01 16:15:00 2019-10-01 16:15:00 Appointmen t; RADHA DAY APRN STANO, CHERYL, APRN [facility] [id number] [facility] 2019-09-14 08:00:00 2019-09-14 08:00:00 Appointmen t; ALICIA BRIGHT M.D. WOERNER, KYLE, M.D. [facility] [id number] [facility] 2019-08-06 08:30:00 2019-08-06 08:30:00 Appointmen t; RADHA DAY APRN STANO, CHERYL, APRN [facility] [id number] [facility] 2019-08-03 14:45:00 2019-08-03 14:45:00 Appointmen t; TERESSA SU M.D. IYENGAR, DEEPA, M.D. [facility] [id number] [facility] 2019-06-04 09:45:00 2019-06-04 09:45:00 Appointmen t; TERESSA SU M.D. IYENGAR, DEEPA, M.D. [facility] [id number] [facility] 2019-04-16 08:45:00 2019-04-16 08:45:00 Appointmen t; TERESSA SU M.D. IYENGAR, DEEPA, M.D. [facility] [id number] [facility] 2019-03-24 14:00:00 2019-03-24 14:00:00 Appointmen t; TERESSA SU M.D. IYENGAR, DEEPA, M.D. [facility] [id number] [facility] 2019-03-03 14:45:00 2019-03-03 14:45:00 Appointmen t; STANO, RADHA, HEALTH EQUIPMENT SERVICER STANO, RADHA, HEALTH EQUIPMENT SERVICER [facility] [id number] [facility] 2019-02-03 14:45:00 2019-02-03 14:45:00 Appointmen t; STANO, RADHA, HEALTH EQUIPMENT SERVICER STANO, RADHA, HEALTH EQUIPMENT SERVICER [facility] [id number] [facility] 2018-12-30 10:45:00 2018-12-30 10:45:00 Appointmen t; STANO, RADHA, HEALTH EQUIPMENT SERVICER STANO, RADHA, HEALTH EQUIPMENT SERVICER [facility]TP [id number] [facility] 2018-12-15 07:00:00 2018-12-15 07:00:00 Appointmen t; ALICIA BRIGHT M.D. WOERNER, KYLE, M.D. [facility] [id number] [facility] 2018-11-20 10:00:00 2018-11-20 10:00:00 Appointmen t; STANO, RADHA, HEALTH EQUIPMENT SERVICER STANO, RADHA, HEALTH EQUIPMENT SERVICER [facility]TP [id number] [facility] Results Test Description Test Time Test Comments Results Result Co mments Source [facility] W/CR (MICROALBUMIN)2023-08-24 12:27:01* Test Item Value Reference Range Interpretation Comme nts CREATININE, URINE (test code = 2162-6) 38.3 NOT ESTAB MG/DL Albumin, Urine (test code = 45270-6) 10.9 NOT ESTAB MG/DL Alb/Creat Ratio (test code = 9318-7) 285 MG/G <=30 H Note: ? Albumin/Creatinine ratio reference interval reflects ? ADA and NKF guidelines. Testing Performed At:[facility]: ?[facility] [place] [address]Laboratory Director: Nalini Jason M.D., CLIA #: [id number] Lab Interpretation (test code = 05341-0) Abnormal [facility] W/REFLEX TO [id number] 11:47:13* Test Item Value Reference Range Interpretation Comme nts TSH W/REFLEX TO FT4 (test code = 3016-3) 15.100 See_Comment H Testing Per formed At:[facility]: ?[facility] [place], [place] [address]Laboratory Director: Nalini Jason M.D., CLIA #: [id number] [Automated message] The system which generated this result transmitted reference range: 0.400 - 4.100 UIU/ML. The reference range was not used to interpret this result as normal/abnormal. Lab Interpretation (test code = 10228-1) Abnormal [facility], [id number] 11:47:13* Test Item Value Reference Range Interpretation Comme nts T4 FREE (test code = 3024-7) 0.55 See_Comment L Testing Performe d At:[facility]: ?[facility] [address] [id number] Director: Nalini Jason M.D., CLIA #: [id number] [Automated message] The system which generated this result transmitted reference range: 0.80 - 1.90 NG/DL. The reference range was not used to interpret this result as normal/abnormal. Lab Interpretation (test code = 26538-9) Abnormal [facility] metabolic [id number] 11:38:38* Test Item Value Reference Range Interpretation Comme nts GLUCOSE (test code = 2345-7) 382 See_Comment H [Automated messa ge] The system which generated this result transmitted reference range: 70 - 99 MG/DL. The reference range was not used to interpret this result as normal/abnormal. BUN (test code = 3094-0) 12 See_Comment [Automated message] The system which generated this result transmitted reference range: 8 - 23 MG/DL. The reference range was not used to interpret this result as normal/abnormal. CREATININE (test code = 2160-0) 0.76 See_Comment [Automated messa ge] The system which generated this result transmitted reference range: 0.60 - 1.30 MG/DL. The reference range was not used to interpret this result as normal/abnormal. eGFR If NonAfricn Am (test code = 07147-3) 87 See_Comment [Automated message] The system which generated this result transmitted reference range: >60 ML/MIN/1.73. The reference range was not used to interpret this result as normal/abnormal. BUN/CREATININE RATIO (test code = 3097-3) 16 See_Comment [Automated message] The system which generated this result transmitted reference range: 6 - 28 RATIO. The reference range was not used to interpret this result as normal/abnormal. SODIUM (test code = 2951-2) 138 See_Comment [Automated messa ge] The system which generated this result transmitted reference range: 133 - 146 MEQ/L. The reference range was not used to interpret this result as normal/abnormal. POTASSIUM (test code = 2823-3) 4.6 See_Comment [Automated messa ge] The system which generated this result transmitted reference range: 3.5 - 5.4 MEQ/L. The reference range was not used to interpret this result as normal/abnormal. CHLORIDE (test code = 2075-0) 96 See_Comment [Automated messa ge] The system which generated this result transmitted reference range: 95 - 107 MEQ/L. The reference range was not used to interpret this result as normal/abnormal. CARBON DIOXIDE (test code = 2028-9) 27 See_Comment [Automated messa ge] The system which generated this result transmitted reference range: 19 - 31 MEQ/L. The reference range was not used to interpret this result as normal/abnormal. CALCIUM (test code = 62341-5) 10.6 See_Comment H [Automated messa ge] The system which generated this result transmitted reference range: 8.5 - 10.5 MG/DL. The reference range was not used to interpret this result as normal/abnormal. PROTEIN, TOTAL (test code = 2885-2) 8.0 See_Comment [Automated messa ge] The system which generated this result transmitted reference range: 6.1 - 8.3 G/DL. The reference range was not used to interpret this result as normal/abnormal. ALBUMIN (test code = 67258-0) 5.3 See_Comment H [Automated messa ge] The system which generated this result transmitted reference range: 3.5 - 5.2 G/DL. The reference range was not used to interpret this result as normal/abnormal. GLOBULIN (test code = 74294-3) 2.7 See_Comment [Automated messa ge] The system which generated this result transmitted reference range: 1.9 - 3.7 G/DL. The reference range was not used to interpret this result as normal/abnormal. A/G RATIO (test code = 1759-0) 2.0 See_Comment [Automated messa ge] The system which generated this result transmitted reference range: 1.0 - 2.6 RATIO. The reference range was not used to interpret this result as normal/abnormal. BILIRUBIN, TOTAL (test code = 1975-2) 0.2 See_Comment [Automated messa ge] The system which generated this result transmitted reference range: <=1.2 MG/DL. The reference range was not used to interpret this result as normal/abnormal. ALKALINE PHOSPHATASE (test code = 6768-6) 142 U/L 40-140 H AST (test code = 1920-8) 21 U/L 9-40 ALT (test code = 1742-6) 21 U/L 5-40 Testing Performed At:[facility]: ?[facility], [address] [place] [id number] Director: Nalini Jason M.D., EMILYIA #: [id number] Lab Interpretation (test code = 92548-0) Abnormal [facility] HealthLIPID PANEL WITH REFLEX TO DIRECT [id number] 11:38:38* Test Item Value Reference Range Interpretation Comme nts Cholesterol (test code = 2093-3) 196 See_Comment [Automated messa ge] The system which generated this result transmitted reference range: <200 MG/DL. The reference range was not used to interpret this result as normal/abnormal. TRIGLYCERIDES (test code = 2571-8) 227 See_Comment H [Automated messa ge] The system which generated this result transmitted reference range: <150 MG/DL. The reference range was not used to interpret this result as normal/abnormal. HDL CHOLESTEROL (test code = 2085-9) 42 See_Comment [Automated [employer]] The system which generated this result transmitted reference range: >39 MG/DL. The reference range was not used to interpret this result as normal/abnormal. LDL-CHOLESTEROL (test code = 25850-0) 120 See_Comment H NOTE: CALCULATED LDL IS BASED ON SHYAM-MALDONADO METHOD WHICHINCLUDES ADJUSTABLE TRIGLYCERIDE:VLDL CHOLESTEROL RATIO.THIS FACTOR VARIES BY MEASURED TRIGLYCERIDE AND NON-HDLCHOLESTEROL CONCENTRATIONS WITH INCREASED CALCULATED LDL SEENIN HIGHER TRIGLYCERIDE OR LOWER NON-HDL SPECIMENS. FOR MOREINFORMATION, SEE CLIENT ANNOUNCEMENT AT [email or web address] [Automated message] The system which generated this result transmitted reference range: <100 MG/DL. The reference range was not used to interpret this result as normal/abnormal. LDL/HDL RATIO (test code = 06935-3) 2.86 See_Comment Testing Performe d At:[facility]: ?[facility], [address] [place] [id number] Director: Nalini Jason M.D., [facility] #: [id number] [Automated message] The system which generated this result transmitted reference range: <3.22 RATIO. The reference range was not used to interpret this result as normal/abnormal. Lab Interpretation (test code = 70932-6) [facility]normal [facility] [id number] 10:10:34* Test Item Value Reference Range Interpretation Comme nts HEMOGLOBIN A1c (test code = 4548-4) 9.5 % 4.2-5.6 H ? [employer] GUIDELINES FOR HGB A1C: ?PREDIABETES/INCREASED RISK . . . . . . . 5.7-6.4% ?DIAGNOSIS OF DIABETES ?. . . . . . . . . >=6.5% ?WITH CONFIRMATION OR APPROPRIATE SYMPTOMS ? ? NOTE: ASSAY MAY BE AFFECTED BY HEMOGLOBINOPATHIES (SICKLE ? ? CELL ANEMIA, S-C DISEASE, OTHERS) OR ARTIFICIALLY LOWERED BY ? ? DECREASED RED CELL SURVIVAL (HEMOLYTIC ANEMIAS, BLOOD LOSS, ? ? ETC.). ?CONSIDER ALTERNATE TESTING OR LABORATORY CONSULTATION. Testing Performed At:[facility]: ?[facility], [address] [place] [id number] Director: Nalini Jason M.D., CLIA #: [id number] Lab Interpretation (test code = 58528-9) Abnormal [facility]cvSokhhseigw3852-83-88 09:13:11* Test Item Value Reference Range Interpretation Comme nts HEMATOCRIT (test code = 4544-3) 43.7 % 34.0-45.0 Testing Performe d At:[facility]: ?[facility], [address] [place], [place] [address]Laboratory Director: Nalini Jason M.D., CLIA #: [id number] [facility] CenterMxxxjuUllvqcrxoy5722-48-45 09:13:11* Test Item Value Reference Range Interpretation Comme nts HEMOGLOBIN (test code = 718-7) 14.0 See_Comment Testing Performe d At:[facility]: ?[facility], [address] [place], [place] [address]Laboratory Director: Nalini Jason M.D., CLIA #: [id number] [Automated message] The system which generated this result transmitted reference range: 11.5 - 15.5 G/DL. The reference range was not used to interpret this result as normal/abnormal. [facility] Health[facility]em[facility] [id number] 03:37:00* Test Item Value Reference Range Interpretation Comments HEMOGLOBIN A1c (test code = 4548-4) 7.9 See_Comment H For someone with out known diabetes, a hemoglobin E8ihtras of 6.5% or greater indicates that they may have diabetes and this should be confirmed with a follow-up test. For someone with known diabetes, a value <7% indicates that their diabetes is well controlled and a value greater than or equal to 7% indicates suboptimal control. A1c targets should be individualized based on duration of diabetes, age, comorbid conditions, and other considerations. Currently, no consensus exists regarding use ofhemoglobin A1c for diagnosis of diabetes for children. ? [Automated message] The system which generated this result transmitted reference range: <5.7 % of total Hgb. The reference range was not used to interpret this result as normal/abnormal. RAC (test code = RAC) Performing Organization Information: ? ?Site ID: [id number] ? ?Name: [employer] [place] ? ?Address: [address] [place] [id number] ? ?Director: RADHA OLIVAS MD,PHD. Lab Interpretation (test code = 27270-0) Abnormal [facility] glycosylated hemoglobin (Hb A1C)2022-03-09 15:45:00* Test Item Value Reference Range Interpretation Comme nts Hemoglobin A1C (test code = 4548-4) 7.6 % 4-6 A Lab Interpretation (test cod e = 31900-8) Abnormal [facility]
[2024-07-14] MEDS ORDERED: NA CHLORIDE 0.9% 500 ML ONE (11:15)
[2024-07-14] MEDS ORDERED: ONDANSETRON 4 MG/2 ML VIAL ONE ×2 (11:15→13:57)
[2024-07-14] MEDS ORDERED: FAMOTIDINE 20 MG/2 ML VIAL IV ONE (11:41)
[2024-07-14] MEDS ORDERED: MORPHINE 2 MG/ML SYR ONE (11:41)
[2024-07-14 11:48] LABS: Absolute Lymphocytes (CBC) 1.3 K/uL (0.7-4.9); Absolute Monocytes 0.1 K/uL (0.1-1.3); Absolute Neutrophil 4.8 K/uL (1.8-8.0); Basophils % 0.7 % (0-1.3); Eosinophils % 0.3 % (0-4.4); Hematocrit 40.3 % (36.0-45.0); Hemoglobin 13.2 g/dL (12.0-15.0); Lymphocytes % 20.6 % (15.3-44.8); MCH 31.1 pg (27.0-35.0); MCHC 32.9 g/dL (32.0-36.0); MCV 94.6 fL (80-100); MPV 7.8 fL (7.6-11.3); Neutrophils % 76.4 % (41.7-73.7); Platelets 291 thou/uL (152-406); RBC Red Blood Cell Count 4.26 M/uL (3.86-4.86)
--- NOTE | 2024-07-14 11:54 | RAD REPORT ---
EXAM: Right upper quadrant ultrasound. CLINICAL HISTORY: Abdominal pain COMPARISON: November 2023 FINDINGS: A gallstone is not seen. Gallbladder wall not thickened. Biliary tree normal caliber IMPRESSION: No significant abnormalities displayed
[2024-07-14 12:03] LABS: SARS-CoV-2 Antigen CONTROL BLUE LINE VIS/BG OK; SARS-CoV-2 Antigen Rapid Res Negative (Negative)
[2024-07-14 12:05] LABS: Albumin 4.5 g/dL (3.4-5.0); Anion Gap 9.8 mEq/L (5.0-15.0); Bilirubin Total 0.4 mg/dL (0.2-1.0); Globulin 4.4 g/dL (2.3-3.5); Potassium 3.8 mEq/L (3.5-5.1); Protein, Total 8.9 g/dL (6.4-8.2)
--- NOTE | 2024-07-14 12:32 | RAD REPORT ---
EXAMINATION: CT ABDOMEN AND PELVIS WITH CONTRAST CLINICAL INDICATION: Abdominal pain TECHNIQUE: CT abdomen and pelvis was performed, after the administration of 100 cc Isovue-300.. Sagit malia and coronal reconstructions were obtained. One or more of the following dose reduction techniques were used: Automated exposure control, adjustment of the mA and kV according to patient si ze, and iterative reconstruction. Unless otherwise specified, incidental findings do not require dedicated imaging follow-up. [id number]. Oral contrast was not given which limits evaluation of bowel and appendix. COMPARISON: .November 2023 FINDINGS: Mild fatty liver. The spleen, pancreas, and kidneys unremarkable Adrenal hyperplasia suspected. Normal appendix. No evidence of diverticulitis. No adnexal mass. Post surgical changes lumbar spine. Mild chronic anterior subluxation L3 on L4. : IMPRESSION: No acute abnormality displayed
[2024-07-14] MEDS ORDERED: PROMETHAZINE INJ 25 MG/ML AMP ONE (12:34)
--- NOTE | 2024-07-14 13:44 | ER ---
Nurse's Notes [facility] Name: Jes Swift Age: 63 yrs Sex: Female : 1960 Arrival Date: 07/14/2024 Time: 10:39 Bed 20 Private MD: Diagnosis: Upper abdominal pain, unspecified Presentation: 07/14 11:04 Chief complaint: Patient states: abdominal pain started this morning about 0400, ko1 vomited about 4-5 times mostly dry heaves, yellow in color. Also having diarrhea, some congestion and slight runny nose. Coronavirus screen: At this time, the client does not indicate any symptoms associated with coronavirus-19. Ebola Screen: No symptoms or risks identified at this time. Initial Sepsis Screen: Does the patient meet any 2 criteria? No. Patient's initial sepsis screen is negative. Does the patient have a suspected source of infection? No. Patient's initial sepsis screen is negative. Risk Assessment: Do you want to hurt yourself or someone else? Patient reports no desire to harm self or others. Onset of symptoms was July 14, 2024. 11:04 Method Of Arrival: Ambulatory ko1 11:04 Acuity: GEREMIAS 3 ko1 Triage Assessment: 11:05 General: Appears in no apparent distress. uncomfortable, Behavior is calm, cooperative, ko1 appropriate for age. Pain: Complains of pain in abdomen. GI: Reports upper abdominal pain, diarrhea, nausea, vomiting. Historical: - Allergies: 11:05 Soma; ko1 - PMHx: 11:05 diabetes mellitus; Hypertensive disorder; ko1 - Immunization history:: Adult Immunizations up to date. - Infectious Disease History:: Denies. - Social history:: Smoking status: Patient denies any tobacco usage or history of. - Family history:: not pertinent. - Hospitalizations: : No recent hospitalization is reported. Screenin:05 [facility] ED Fall Risk Assessment (Adult) History of falling in the last 3 months, me1 including since admission No falls in past 3 months (0 pts) Confusion or Disorientation No (0 pts) Intoxicated or Sedated No (0 pts) Impaired Gait No (0 pts) Mobility Assist Device Used No (0 pt) Altered Elimination No (0 pt) Score/Fall Risk Level 0 - 2 = Low Risk Maintained a safe environment, Provided non-skid footwear, Hourly rounding (assess needs \T\ fall precautionary measures) done. Abuse screen: Denies threats or abuse. Nutritional screening: No deficits noted. Tuberculosis screening: No symptoms or risk factors identified. Assessment: 11:40 General: Appears in no apparent distress. uncomfortable, ill, Behavior is calm, jl7 cooperative. Pain: Complains of pain in abdomen Pain currently is 10 out of 10 on a pain scale. Neuro: Level of Consciousness is awake, alert, obeys commands, Oriented to person, place, time, situation. Cardiovascular: Denies chest pain. Respiratory: Airway is patent Respiratory effort is even, unlabored, Respiratory pattern is regular, symmetrical. 12:05 General: Appears in no apparent distress. uncomfortable, ill, well groomed, well me1 developed, well nourished, Behavior is calm, cooperative, appropriate for age, Reports epigastric abdominal pain with n/v. Pain: Complains of pain in epigastric area Pain does not radiate. Pain currently is 8 out of 10 on a pain scale. Quality of pain is described as burning, sharp, Pain began gradually, Is continuous. Neuro: Level of Consciousness is awake, alert, obeys commands, Oriented to person, place, time, situation, Appropriate for age. Cardiovascular: Patient's skin is warm and dry. Respiratory: Airway is patent Trachea midline Respiratory effort is even, unlabored, Respiratory pattern is regular, symmetrical. GI: Abdomen is round non-distended, Bowel sounds present X 4 quads. Abd is soft X 4 quads. GI: Reports upper abdominal pain, nausea, vomiting. : No signs and/or symptoms were reported regarding the genitourinary system. EENT: No signs and/or symptoms were reported regarding the EENT system. Derm: Skin is intact, is healthy with good turgor, Skin is pink, warm \T\ dry. Musculoskeletal: No signs and/or symptoms reported regarding the musculoskeletal system. Vital Signs: 11:04 BP 163 / 67; Pulse 62; Resp 17; Temp 97; Pulse Ox 99% on R/A; ko1 12:00 BP 168 / 6; Pulse 58; Resp 16; Pulse Ox 94% ; me1 12:38 Pain 8/10; me1 13:00 BP 132 / 72; Pulse 69; Resp 14; Pulse Ox 97% on R/A; me1 14:00 BP 125 / 63; Pulse 59; Resp 16; Temp 98.5; Pulse Ox 100% ; me1 12:38 Pain Scale: Adult me1 ED Course: 10:43 Patient arrived in ED. ra3 10:50 David Ledbetter MD is Attending Physician. rn 11:05 Triage completed. ko1 11:05 Arm band placed on right wrist. Patient placed in an exam room, on a stretcher, on ko1 pulse oximetry, Patient notified of wait time. 11:39 US Abdomen Limited In Process Unspecified. EDMS 11:40 Initial lab(s) drawn, by ED staff, sent to lab. Inserted saline lock: 22 gauge in right jl7 antecubital area, using aseptic technique. ,using aseptic technique. inserted by BROOKS Serrato Blood collected. Flushed with 10 mL NS. 12:05 Patient has correct armband on for positive identification. Bed in low position. Call me1 light in reach. Side rails up X2. Provided Education on: POC. Verbalized understanding.. Client placed on continuous cardiac and pulse oximetry monitoring. NIBP monitoring applied. Pulse ox on. NIBP on. 12:05 No provider procedures requiring assistance completed. me1 12:13 Juhi Wilder, HEIDE is Primary Nurse. me1 12:22 CT Abd/Pelvis - IV Contrast Only In Process Unspecified. EDMS 14:07 IV discontinued, intact, bleeding controlled, No redness/swelling at site. Pressure me1 dressing applied. Administered Medications: 11:40 Drug: Ondansetron IVP 4 mg IVP once; over 2 minutes Route: IVP; Site: right antecubital;jl7 12:38 Follow up: Response: No adverse reaction; Nausea unchanged me1 11:40 Drug: NS 0.9% IV 500 ml 500 ml IV at 1 bolus once; to be given as a bolus over 30 jl7 minutes Volume: 500 ml; Route: IV; Rate: 1 bolus; Site: right antecubital; 14:06 Follow up: Response: No adverse reaction; IV Status: Completed infusion; IV Intake: me1 500ml 11:44 Drug: Famotidine IVP 20 mg IVP once; dilute with 10 mL 0.9% NaCl; give over 2 minutes jl7 Route: IVP; Site: right antecubital; 12:38 Follow up: Response: No adverse reaction me1 11:48 Drug: morphine IVP or IV 2 mg IVP once over 4 mins Route: IVP; Infused Over: 4 mins; jl7 Site: right antecubital; 12:38 Follow up: Pain 8/10 Adult; Response: No adverse reaction; Pain is unchanged, physician me1 notified 12:37 Drug: Promethazine IVP 12.5 mg IVP once Route: IVP; Site: right antecubital; me1 14:06 Follow up: Response: No adverse reaction; Nausea is decreased me1 14:06 Drug: Ondansetron IVP 4 mg IVP once; over 2 minutes Route: IVP; Site: right antecubital;me1 14:06 Follow up: Response: No adverse reaction; Nausea is decreased me1 14:06 Drug: GI Cocktail without - (Maalox PO 30 ml, Lidocaine Mucous Membrane 2 % 15 me1 ml) PO once Route: PO; 14:06 Follow up: Response: No adverse reaction; Pain is decreased me1 Medication: 12:05 VIS not applicable for this client. me1 Intake: 14:06 IV: 500ml; Total: 500ml. me1 Outcome: 13:44 Discharge ordered by . rn 14:07 Discharged to home ambulatory, with friend, me1 14:07 Condition: stable 14:07 Discharge instructions given to patient, friend, Instructed on discharge instructions, follow up and referral plans. medication usage, Demonstrated understanding of instructions, follow-up care, medications, Prescriptions given X 2, 14:07 Patient left the ED. me1 Signatures: Dispatcher [employer] EDMS David Ledbetter MD MD rn Leal, Jahala RN RN jl7 Lolly Fregoso RN RN arabella1 Juhi Wilder RN RN me1 Maryann Jean Baptiste 3
--- NOTE | 2024-07-14 13:44 | EDPHYS ---
Physician Documentation [facility] Name: Jes Swift Age: 63 yrs Sex: Female : 1960 Arrival Date: 07/14/2024 Time: 10:39 Bed 20 Private MD: ED Physician David Ledbetter HPI: 07/14 12:22 This 63 yrs old Black Female presents to ER via Ambulatory with complaints of Abdominal rn Pain, Nausea/Vomiting/Diarrhea. 12:22 The patient presents to the emergency department with nausea, vomiting, diarrhea, rn abdominal pain. Onset: The symptoms/episode began/occurred this morning. Possible causes: unknown. The symptoms are aggravated by nothing. The symptoms are alleviated by nothing. Severity of symptoms: At their worst the symptoms were moderate in the emergency department the symptoms are unchanged. The patient has not experienced similar symptoms in the past. Patient reports upper abdominal pain associated with vomiting primarily and had 1 episode of nonbloody diarrhea. No fever or chills. Has had this once before and told her workup was negative. Does suffer from acid reflux. Never had gallbladder problems in the past. No hematemesis.. Historical: - Allergies: 11:05 Soma; ko1 - PMHx: 11:05 diabetes mellitus; Hypertensive disorder; ko1 - Immunization history:: Adult Immunizations up to date. - Infectious Disease History:: Denies. - Social history:: Smoking status: Patient denies any tobacco usage or history of. - Family history:: not pertinent. - Hospitalizations: : No recent hospitalization is reported. ROS: 12:22 Constitutional: Negative for fever, chills, and weight loss, Eyes: Negative for injury, rn pain, redness, and discharge, Cardiovascular: Negative for chest pain, palpitations, and edema, Respiratory: Negative for shortness of breath, cough, wheezing, and pleuritic chest pain, Abdomen/GI: Positive for abdominal pain with nausea/vomiting/diarrhea MS/Extremity: Negative for injury and deformity, Skin: Negative for injury, rash, and discoloration, Neuro: Positive for generalized weakness and malaise Exam: 12:24 Constitutional: This is a well developed, well nourished patient who is awake, alert, rn holding emesis bag that is empty ENT: Dry mucous membranes Cardiovascular: Regular rate and rhythm. No pulse deficits. Respiratory: No increased work of breathing, no retractions or nasal flaring. Abdomen/GI: Soft, mild epigastric tenderness and right upper quadrant tenderness as well as left upper quadrant tenderness MS/ Extremity: Pulses equal, no cyanosis. Neuro: Awake and alert, GCS 15 Vital Signs: 11:04 BP 163 / 67; Pulse 62; Resp 17; Temp 97; Pulse Ox 99% on R/A; ko1 12:00 BP 168 / 6; Pulse 58; Resp 16; Pulse Ox 94% ; me1 12:38 Pain 8/10; me1 13:00 BP 132 / 72; Pulse 69; Resp 14; Pulse Ox 97% on R/A; me1 14:00 BP 125 / 63; Pulse 59; Resp 16; Temp 98.5; Pulse Ox 100% ; me1 12:38 Pain Scale: Adult me1 MDM: 10:50 Medical Screening Exam initiated rn 13:43 Differential diagnosis: Nonspecific abd pain, gastritis, cholecystitis, pancreatitis, rn viral gastroenteritis, gastroenteritis. Data reviewed: vital signs, nurses notes, lab test result(s), radiologic studies, CT scan, ultrasound, and as a result, I will discharge patient. Counseling: I had a detailed discussion with the patient and/or guardian regarding the historical points, exam findings, and any diagnostic results supporting the discharge/admit diagnosis, lab results, the need for outpatient follow up, to return to the emergency department if symptoms worsen or persist or if there are any questions or concerns that arise at home. Response to treatment: the patient's symptoms have markedly improved after treatment, and as a result, I will discharge patient. Special discussion: Based on the patient's Hx, exam, and Dx evaluation, there is no indication for emergent surgery or inpatient Tx. It is understood by the patient/guardian that if the Sx's persist or worsen they need to return immediately for re-evaluation. I discussed with the patient/guardian in detail that at this point there is no indication for admission to the hospital. It is understood, however, that if the symptoms persist or worsen the patient needs to return immediately for re-evaluation. Based on the history and exam findings, there is no indication for further emergent testing or inpatient evaluation. I discussed with the patient/guardian the need to see the regional operations manager for further evaluation of the symptoms. 07/14 10:51 Order name: CBC with Diff; Complete Time: 12:30 rn 07/14 10:51 Order name: CMP; Complete Time: 12:30 rn 07/14 10:51 Order name: Lipase; Complete Time: 12:30 rn 07/14 10:51 Order name: Flu; Complete Time: 12:30 rn 07/14 10:51 Order name: SARS-COV-2 Antigen Rapid; Complete Time: 12:30 rn 07/14 10:51 Order name: CT Abd/Pelvis - IV Contrast Only; Complete Time: 12:50 rn 07/14 11:04 Order name: US Abdomen Limited; Complete Time: 12:30 rn 07/14 10:51 Order name: IV Saline Lock; Complete Time: 11:50 rn 07/14 10:51 Order name: Labs collected and sent; Complete Time: 11:50 rn Administered Medications: 11:40 Drug: Ondansetron IVP 4 mg IVP once; over 2 minutes Route: IVP; Site: right antecubital;jl7 12:38 Follow up: Response: No adverse reaction; Nausea unchanged me1 11:40 Drug: NS 0.9% IV 500 ml 500 ml IV at 1 bolus once; to be given as a bolus over 30 jl7 minutes Volume: 500 ml; Route: IV; Rate: 1 bolus; Site: right antecubital; 14:06 Follow up: Response: No adverse reaction; IV Status: Completed infusion; IV Intake: me1 500ml 11:44 Drug: Famotidine IVP 20 mg IVP once; dilute with 10 mL 0.9% NaCl; give over 2 minutes jl7 Route: IVP; Site: right antecubital; 12:38 Follow up: Response: No adverse reaction me1 11:48 Drug: morphine IVP or IV 2 mg IVP once over 4 mins Route: IVP; Infused Over: 4 mins; jl7 Site: right antecubital; 12:38 Follow up: Pain 8/10 Adult; Response: No adverse reaction; Pain is unchanged, physician me1 notified 12:37 Drug: Promethazine IVP 12.5 mg IVP once Route: IVP; Site: right antecubital; me1 14:06 Follow up: Response: No adverse reaction; Nausea is decreased me1 14:06 Drug: Ondansetron IVP 4 mg IVP once; over 2 minutes Route: IVP; Site: right antecubital;me1 14:06 Follow up: Response: No adverse reaction; Nausea is decreased me1 14:06 Drug: GI Cocktail without - (Maalox PO 30 ml, Lidocaine Mucous Membrane 2 % 15 me1 ml) PO once Route: PO; 14:06 Follow up: Response: No adverse reaction; Pain is decreased me1 Disposition Summary: 07/14/24 13:44 Discharge Ordered Notes: Location: Home rn Problem: new rn Symptoms: have improved rn Condition: Stable rn Diagnosis - Upper abdominal pain, unspecified rn Followup: rn - With: Private Physician - When: As needed - Reason: Recheck today's complaints, Re-evaluation by your physician Discharge Instructions: - Discharge Summary Sheet rn - Abdominal Pain, Adult rn Forms: - Medication Reconciliation Form rn - Antibiotic local government legislator - Prescription Opioid Use rn - Patient Portal Instructions rn - Leadership Thank You Letter rn Prescriptions: - ondansetron 4 mg Oral Tablet,disintegrating - take 1 tablet ORAL route every 8 hours As needed; 12 tablet; Refills: 0, rn Product Selection Permitted - Tramadol 50 mg Oral Tablet - take 1 tablet ORAL route every 8 hours as needed; 12 tablet; Refills: 0, rn Product Selection Permitted Signatures: Dispatcher [employer] David Leon MD MD rn Leal, Jahala RN RN [email or web address] Lolly Fregoso RN RN [email or web address] Juhi Wilder, RN RN me1
[2024-07-14] MEDS ORDERED: MAGNES/ALUMIN/SIMET 30ML UCUP ONE (13:57)
[2024-07-14] MEDS ORDERED: LIDOCAINE VISCOUS 2% 10ML ORAL SOLN ONE (13:58)
[2024-07-14 20:12] VITALS: BP 125/63; TEMP 98.5; O2SAT 100
== END 2024-07-14 14:07 | disposition home or self-care (01) ==
LOC: ER 10:39
DX: R10.10 Upper abdominal pain, unspecified (principal); R11.2 Nausea with vomiting, unspecified; E11.9 Type 2 diabetes mellitus without complications; I10 Essential (primary) hypertension; Z11.52 Encounter for screening for COVID-19
CPT/HCPCS: 96361; 85025; 36415; 83690; 80053; 87804 ×2; 74177; 76705; 96375; 96374; 99284; 87811; Q9967; J2550; J2270; J2405 ×2; J7040